=== PATIENT | female | born 1990 | race Caucasian/White ===

== ENCOUNTER 2016-07-12 21:42 | Emergency (ER) | payer BC ==
[2016-07-12 21:55] VITALS: BP 128/81
--- NOTE | 2016-07-12 22:02 | EDM.PDOC ---
ED HPI GENERAL MEDICAL PROBLEM - General Chief Complaint: Genitourinary Problem Stated Complaint: POSS PCOS Time Seen by Provider: 07/12/16 22:01 - History of Present Illness INITIAL COMMENTS - FREE TEXT/NARRATIVE: 25-year-old female presents emergency room with abdominal and pelvic pain. Patient is ongoing pelvic pain is thought to have polycystic ovarian syndrome. It is unclear whether this is her been confirmed. She has followup with Dr. Chen tomorrow. She's developed a new type of pain it's up a little higher and on the left side. Does not feel like typical ovarian pain. This pain is not associated with any nausea vomiting constipation or diarrhea he has not noticed any blood in her stools or mucus in her stools. Treatments MACHINE LACER: Reports: Other (see below) Other Treatments MACHINE LACER: Ibuprofen 400 mg at 1900 Pelvic Pain Score (Numeric/FACES): 7 - Related Data Allergies Allergy/AdvReac Type Severity Reaction Status Date / Time No Known Allergies Allergy Verified 07/12/16 21:51 Home Meds: Home Meds Acetaminophen [Tylenol] 325 mg PO Q6H #50 tablet 02/11/16 [Rx] Ibuprofen [Motrin] 600 mg PO Q6H #50 tablet 02/11/16 [Rx] Medroxyprogesterone Acet [IJD: Provera] 10 mg PO BID 02/11/16 [History] Ondansetron [Ondansetron ODT] 8 mg PO Q6H PRN 02/11/16 [History] Polyethylene Glycol 3350 [MiraLAX] 17 gm PO TID #21 packet 02/11/16 [Rx] Vit W-Ca,Fe,FA(<1 mg) [ Vitamins] 1 tab PO DAILY 02/11/16 [ History] Hydrocodone/Acetaminophen [Dutton 5-325 Tablet] 1 - 2 tab PO Q6H PRN #5 tablet [Rx] Past Medical History - Past Health History Medical/Surgical History: Denies Medical/Surgical History HEENT History: Reports: Other (see below) Other HEENT History: glass in eye one time, corneal abrasion Gastrointestinal History: Reports: Other (see below) Other Gastrointestinal History: states has Hx of "cyst" on gallbladder. Genitourinary History: Reports: UTI, recurrent SKI GUIDE History: Reports: Polycystic Ovaries Other OB/BYN History: 2 children and 2 misscarriages; births have been vaginal deliveries Psychiatric History: Reports: Anxiety Hematologic History: Reports: Anemia, Iron deficiency - Infectious Disease History Infectious Disease History: Reports: None - Past Surgical History HEENT Surgical History: Reports: Oral surgery, Other (see below) Other HEENT Surgeries/Procedures: wisdom teeth extraction Female Surgical History: Reports: D&C Social & Family History - Family History Family Medical History: Noncontributory Other Dermatologic Family History: arthritis - Tobacco Use Smoking Status *Q: Current Every Day Smoker Years of Tobacco use: 5 Packs/Tins Daily: 1 - Caffeine Use Caffeine Use: - Alcohol Use Days Per Week of Alcohol Use: 0 - Recreational Drug Use Recreational Drug Use: No Drug Use in Last 12 Months: No Recreational Drug Type: Reports: Marijuana/Hashish Other Recreational Drug Type: long time ago did some marijuana - Living Situation & Occupation Living situation: Reports: Occupation: unemployed ED ROS GENERAL - Review of Systems Review Of Systems: See Below Constitutional: Reports: no symptoms. Denies: fever, chills HEENT: Reports: No symptoms Respiratory: Reports: No Symptoms Cardiovascular: Reports: No symptoms GI/Abdominal: Reports: Abdominal pain. Denies: Constipation, Diarrhea, Nausea, Vomiting : Denies: discharge, dysuria, flank pain, frequency, hematuria Musculoskeletal: Reports: no symptoms ED EXAM, GI/ABD - Physical Exam Exam: See Below Exam Limited By: No limitations General Appearance: alert, no apparent distress Head: atraumatic, normocephalic Neck: normal inspection, supple, non-tender, full range of motion. No: lymphadenopathy (L), lymphadenopathy (R) Respiratory/Chest: no respiratory distress, lungs clear, normal breath sounds Cardiovascular: regular rate, rhythm, no edema, no murmur GI/Abdominal: Normal Bowel Sounds, Other (Patient significant left-sided pelvic and left lower quadrant abdominal discomfort. No appreciable rebound however she does have some guarding you can work through this) Back Exam: normal inspection. No: CVA tenderness (L), CVA tenderness (R) Extremities: normal inspection, no pedal edema Neurological: alert, oriented, normal cognition Course - Vital Signs Last Recorded V/S: Last Vital Signs Temp 36.7 C 07/12/16 21:51 Pulse 89 07/12/16 21:51 Resp BP 128/81 07/12/16 21:51 Pulse Ox 99 07/12/16 21:51 - Orders/Labs/Meds Orders: Active Orders 24 hr Category Date Time Status Lactated Ringers [Ringers, Lactated] 1,000 ml Med 07/12/16 22:15 Active IV ASDIRECTED Medication Orders Lactated Ringer's (Ringers, Lactated) 1,000 mls @ 150 mls/hr IV ASDIRECTED AMBERLY Last Admin: 07/12/16 22:41 Dose: 150 mls/hr Labs: Laboratory Tests 07/12/16 07/12/16 07/12/16 Range/Units 22:30 22:30 22:45 WBC 8.60 (3.98-10.04) K/mm3 RBC 4.57 (3.98-5.22) M/mm3 Hgb 14.1 (11.2-15.7) gm/L Hct 41.3 (34.1-44.9) % MCV 90.4 (79.4-94.8) fl MCH 30.9 (25.6-32.2) pg MCHC 34.1 (32.2-35.5) g/dl RDW Std Deviation 39.9 (36.4-46.3) fL Plt Count 356 (182-369) K/mm3 MPV 10.7 (9.4-12.3) fl Neutrophils % (Manual) 54 (40-60) % Band Neutrophils % 0 (0-10) % Lymphocytes % (Manual) 45 H (20-40) % Atypical Lymphs % 0 % Monocytes % (Manual) 1 L (2-10) % Eosinophils % (Manual) 0 L (0.7-5.8) % Basophils % (Manual) 0 L (0.1-1.2) Platelet Estimate Adequate RBC Morph Comment Normal Sodium 139 (136-145) mEq/L Potassium 3.6 (3.5-5.1) mEq/L Chloride 104 (98-107) mEq/L Carbon Dioxide 24 (21-32) mEq/L Anion Gap 14.6 (5-15) BUN 14 (7-18) mg/dL Creatinine 0.8 (0.55-1.02) mg/dL Est Cr Clr Drug Dosing 90.47 mL/min Estimated GFR (MDRD) > 60 (>60) mL/min BUN/Creatinine Ratio 17.5 (14-18) Glucose 93 (74-106) mg/dL Calcium 9.2 (8.5-10.1) mg/dL Total Bilirubin 0.9 (0.2-1.0) mg/dL AST 9 L (15-37) U/L ALT 17 (14-59) U/L Alkaline Phosphatase 60 (46-116) U/L Total Protein 8.1 (6.4-8.2) g/dl Albumin 4.7 (3.4-5.0) g/dl Globulin 3.4 gm/dL Albumin/Globulin Ratio 1.4 (1-2) Urine Color (Yellow) Urine Appearance (Clear) Urine pH (5.0-8.0) Ur Specific [place] (1.005-1.030) Urine Protein (Negative) Urine Glucose (UA) (Negative) Urine Ketones (Negative) Urine Occult Blood (Negative) Urine Nitrite (Negative) Urine Bilirubin (Negative) Urine Urobilinogen (0.2-1.0) Ur Leukocyte Esterase (Negative) Urine RBC (0-5) /hpf Urine WBC (0-5) /hpf Urine WBC Clumps (NOT SEEN) /hpf Ur Epithelial Cells (0-5) /hpf Ur Squamous Epith Cells (0-5) /hpf Urine Bacteria (FEW) /hpf Urine Mucus (FEW) /hpf Urine HCG, Qual Negative (NEGATIVE) 07/12/16 Range/Units 22:45 WBC (3.98-10.04) K/mm3 RBC (3.98-5.22) M/mm3 Hgb (11.2-15.7) gm/L Hct (34.1-44.9) % MCV (79.4-94.8) fl MCH (25.6-32.2) pg MCHC (32.2-35.5) g/dl RDW Std Deviation (36.4-46.3) fL Plt Count (182-369) K/mm3 MPV (9.4-12.3) fl Neutrophils % (Manual) (40-60) % Band Neutrophils % (0-10) % Lymphocytes % (Manual) (20-40) % Atypical Lymphs % % Monocytes % (Manual) (2-10) % Eosinophils % (Manual) (0.7-5.8) % Basophils % (Manual) (0.1-1.2) Platelet Estimate RBC Morph Comment Sodium (136-145) mEq/L Potassium (3.5-5.1) mEq/L Chloride (98-107) mEq/L Carbon Dioxide (21-32) mEq/L Anion Gap (5-15) BUN (7-18) mg/dL Creatinine (0.55-1.02) mg/dL Est Cr Clr Drug Dosing mL/min Estimated GFR (MDRD) (>60) mL/min BUN/Creatinine Ratio (14-18) Glucose (74-106) mg/dL Calcium (8.5-10.1) mg/dL Total Bilirubin (0.2-1.0) mg/dL AST (15-37) U/L ALT (14-59) U/L Alkaline Phosphatase (46-116) U/L Total Protein (6.4-8.2) g/dl Albumin (3.4-5.0) g/dl Globulin gm/dL Albumin/Globulin Ratio (1-2) Urine Color Yellow (Yellow) Urine Appearance Clear (Clear) Urine pH 5.5 (5.0-8.0) Ur Specific [place] > or = 1.030 (1.005-1.030) Urine Protein Trace H (Negative) Urine Glucose (UA) Negative (Negative) Urine Ketones Trace H (Negative) Urine Occult Blood Negative (Negative) Urine Nitrite Negative (Negative) Urine Bilirubin 1+ H (Negative) Urine Urobilinogen 0.2 (0.2-1.0) Ur Leukocyte Esterase Negative (Negative) Urine RBC Not seen (0-5) /hpf Urine WBC 0-5 (0-5) /hpf Urine WBC Clumps Not seen (NOT SEEN) /hpf Ur Epithelial Cells 5-10 H (0-5) /hpf Ur Squamous Epith Cells 5-10 H (0-5) /hpf Urine Bacteria Not seen (FEW) /hpf Urine Mucus Many H (FEW) /hpf Urine HCG, Qual (NEGATIVE) Meds: Medications Generic Name Dose Route Start Last Admin Trade Name Freq PRN Reason Stop Dose Admin Lactated Ringer's 1,000 mls @ 150 mls/hr 07/12/16 22:15 07/12/16 22:41 Ringers, Lactated IV 150 mls/hr ASDIRECTED AMBERLY Administration Discontinued Medications Generic Name Dose Route Start Last Admin Trade Name Freq PRN Reason Stop Dose Admin Hydrocodone Bitart/Acetaminophen 1 tab 07/13/16 00:40 07/13/16 00:47 Dutton 325-5 Mg PO 07/13/16 00:41 1 tab ONETIME ONE Administration Fentanyl 50 mcg 07/12/16 22:13 07/12/16 22:42 Sublimaze IVPUSH 07/12/16 22:14 50 mcg ONETIME ONE Administration Ondansetron HCl 4 mg 07/12/16 22:13 07/12/16 22:45 Zofran IVPUSH 07/12/16 22:14 4 mg ONETIME ONE Administration - Re-Assessments/Exams Free Text/Narrative Re-Assessment/Exam: 07/13/16 00:49 For evaluation is unrevealing hCG is negative. Patient's followup with Dr. Chen in the morning. The patient will be discharged with a to go pack of the Dutton one or 2 every 6 hours as needed. Departure - Departure Time of Disposition: 00:51 Disposition: Home, Self-Care 01 Clinical Impression: Abdominal pain of unknown cause, Pelvic pain - Discharge Information Prescriptions: Hydrocodone/Acetaminophen [Dutton 5-325 Tablet] 1 - 2 tab PO Q6H PRN #5 tablet PRN Reason: Abdominal Pain Referrals: Obdulio Chen MD [Primary Care Provider] - Forms: ED Department Discharge Additional Instructions: Return to the emergency room with any questions or problems. Followup with Dr. Chen in the morning as scheduled. This evening emergency room his laboratory work is really unrevealing, however, this pain is a little different than what she had in the past and could represent a new problem. At this point I would recommend clear liquid diet for the next 12 hours then slowly advance as tolerated. Return to the emergency room in 12-24 hours if not better sooner if getting worse. - My Orders Last 24 Hours: My Active Orders 07/12/16 22:15 Lactated Ringers [Ringers, Lactated] 1,000 ml IV ASDIRECTED - Assessment/Plan Last 24 Hours: My Active Orders 07/12/16 22:15 Lactated Ringers [Ringers, Lactated] 1,000 ml IV ASDIRECTED
[2016-07-12] MEDS ORDERED: Ondansetron 4 MG/2 ML SDV IVPUSH ONE (22:13)
[2016-07-12] MEDS ORDERED: fentaNYL 100 MCG/2 ML SDV IVPUSH ONE (22:13)
[2016-07-12] MEDS ORDERED: Lactated Ringers 1,000 ML IV SCH (22:15)
[2016-07-13] MEDS ORDERED: Acetaminophen/HYDROcodone 325-5 MG Tab PO ONE (00:40)
== END 2016-07-13 01:05 | disposition home or self-care (01) ==
LOC: JD.ED 21:42
DX: R10.32 Left lower quadrant pain (principal); R10.2 Pelvic and perineal pain; F41.9 Anxiety disorder, unspecified; F17.210 Nicotine dependence, cigarettes, uncomplicated; Z87.440 Personal history of urinary (tract) infections; Z86.2 Personal history of diseases of the blood and blood-forming organs and certain disorders involving the immune mechanism; Z98.890 Other specified postprocedural states; Z79.899 Other long term (current) drug therapy
CPT/HCPCS: 36415; 80053; 81001; 81025; 85025; 96361; 96374; 96375; 99284; A9270; J2405; J3010; J7120

== ENCOUNTER 2016-08-15 21:11 | Emergency (ER) | payer BC ==
[2016-08-15 21:50] VITALS: BP 122/88
--- NOTE | 2016-08-15 22:41 | EDM.PDOC ---
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 Last normal menstrual period was greater than 2 months ago. She states her cycles are usually very regular. She not been using any form of control. Is 6 para 2. 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 She states she feels with breast tenderness. Spotting per vagina as was 4 days ago and lasted for less than 6 hours. Since that time she is expressing a lot of lower abdominal cramping pain menstrual-like pain. No bleeding. She has not tried a home test. Of note the patient has taken Motrin 800 mg at home for pain relief. She reports her bowels been working more than normal. No problems with constipation. Onset: Gradual (Spotting started 4 days ago. 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 SUPERVISOR: Reports: Other (see below) (None.) Lower Abdomen Pain Score (Numeric/FACES): 5 - Related Data Allergies Allergy/AdvReac Type Severity Reaction Status Date / Time No Known Allergies Allergy Verified 08/15/16 21:46 Home Meds: Home Meds Ibuprofen 800 mg PO ASDIRECTED PRN 08/15/16 [History] Diclofenac Sodium [Voltaren-XR] 100 mg PO DAILY #3 tab.sr.24h 08/16/16 [Rx] Past Medical History - Past Health History Medical/Surgical History: Denies Medical/Surgical History HEENT History: Reports: Other (See Below) Other HEENT History: glass in eye one time, corneal abrasion Gastrointestinal History: Reports: Other (See Below) Other Gastrointestinal History: exploratory laproscopy Genitourinary History: Reports: UTI, Recurrent Other Genitourinary History: PCOS 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 PRESS TENDER History: Reports: Polycystic Ovaries : 6 Para: 2 (2 miscarriages requiring D&Cs.) Other OB/BYN History: 2 children and 2 misscarriages; births have been vaginal deliveries Psychiatric History: Reports: Anxiety Hematologic History: Reports: Anemia, Iron Deficiency - Infectious Disease History Infectious Disease History: Reports: None - Past Surgical History HEENT Surgical History: Reports: Oral Surgery, Other (See Below) Female Surgical History: Reports: D&C Social & Family History - Family History Family Medical History: Noncontributory Other Dermatologic Family History: arthritis - Tobacco Use Smoking Status *Q: Current Every Day Smoker Years of Tobacco use: 6 Packs/Tins Daily: 0.7 - Caffeine Use Caffeine Use: - Alcohol Use Days Per Week of Alcohol Use: 0 - Recreational Drug Use Recreational Drug Use: No Drug Use in Last 12 Months: No Recreational Drug Type: Reports: Marijuana/Hashish Other Recreational Drug Type: long time ago did some marijuana - Living Situation & Occupation Living situation: Reports: Occupation: Unemployed ED ROS GENERAL - Review of Systems Review Of Systems: See Below Constitutional: Reports: Malaise, Fatigue. Denies: Fever, Chills HEENT: Reports: No Symptoms Respiratory: Reports: No Symptoms Cardiovascular: Reports: No Symptoms Endocrine: Reports: No Symptoms GI/Abdominal: Reports: Abdominal Pain (See history of present illness) : Reports: Irregular Menses Musculoskeletal: Reports: No Symptoms (She believes her last menstrual period was approximately 2-1/2 months ago.) Skin: Reports: No Symptoms Neurological: Reports: No Symptoms Psychiatric: Reports: No Symptoms Hematologic/Lymphatic: Reports: No Symptoms Immunologic: Reports: No Symptoms ED EXAM - Physical Exam Exam: See Below Exam Limited By: No Limitations General Appearance: Alert, WD/WN, No Apparent Distress Respiratory/Chest: No Respiratory Distress, Lungs Clear, Normal Breath Sounds, No Accessory Muscle Use Cardiovascular: Normal Peripheral Pulses, Regular Rate, Rhythm, No Edema, No Gallop, No Murmur, No Rub GI/Abdominal: Normal Bowel Sounds, Soft, Non-Tender, No Organomegaly, No Distention, No Abnormal Bruit. No: Gravid Uterus Course - Vital Signs Last Recorded V/S: Last Vital Signs Temp 37.0 C 08/15/16 21:48 Pulse 83 08/15/16 21:48 Resp 18 08/15/16 21:48 BP 122/88 08/15/16 21:48 Pulse Ox 100 08/15/16 21:48 - Orders/Labs/Meds Orders: Active Orders 24 hr Category Date Time Status Ketorolac [Toradol] Med 08/16/16 00:15 Active 30 mg IVPUSH ONETIME Sodium Chloride 0.9% [Normal Saline] 1,000 ml Med 08/15/16 22:45 Active IV ASDIRECTED Medication Orders Sodium Chloride (Normal Saline) 1,000 mls @ 150 mls/hr IV ASDIRECTED AMBERLY Last Admin: 08/15/16 23:12 Dose: 150 mls/hr Ketorolac Tromethamine (Toradol) 30 mg IVPUSH ONETIME AMBERLY Last Admin: 08/16/16 00:20 Dose: 30 mg Labs: Laboratory Tests 08/15/16 08/15/16 08/15/16 Range/Units 22:55 23:00 23:00 WBC 7.05 (3.98-10.04) K/mm3 RBC 4.41 (3.98-5.22) M/mm3 Hgb 13.7 (11.2-15.7) gm/L Hct 40.9 (34.1-44.9) % MCV 92.7 (79.4-94.8) fl MCH 31.1 (25.6-32.2) pg MCHC 33.5 (32.2-35.5) g/dl RDW Std Deviation 42.2 (36.4-46.3) fL Plt Count 268 (182-369) K/mm3 MPV 10.8 (9.4-12.3) fl Neutrophils % (Manual) 51 (40-60) % Band Neutrophils % 0 (0-10) % Lymphocytes % (Manual) 42 H (20-40) % Atypical Lymphs % 2 % Monocytes % (Manual) 4 (2-10) % Eosinophils % (Manual) 1 (0.7-5.8) % Basophils % (Manual) 0 L (0.1-1.2) Platelet Estimate Adequate Plt Morphology Comment Normal RBC Morph Comment Normal Sodium 143 (136-145) mEq/L Potassium 4.1 (3.5-5.1) mEq/L Chloride 107 (98-107) mEq/L Carbon Dioxide 28 (21-32) mEq/L Anion Gap 12.1 (5-15) BUN 11 (7-18) mg/dL Creatinine 0.8 (0.55-1.02) mg/dL Est Cr Clr Drug Dosing 90.47 mL/min Estimated GFR (MDRD) > 60 (>60) mL/min BUN/Creatinine Ratio 13.8 L (14-18) Glucose 93 (74-106) mg/dL Calcium 9.2 (8.5-10.1) mg/dL Total Bilirubin 0.3 (0.2-1.0) mg/dL AST 12 L (15-37) U/L ALT 28 (14-59) U/L Alkaline Phosphatase 67 (46-116) U/L Total Protein 7.3 (6.4-8.2) g/dl Albumin 4.1 (3.4-5.0) g/dl Globulin 3.2 gm/dL Albumin/Globulin Ratio 1.3 (1-2) HCG, Qual (NEGATIVE) Urine Color Yellow (Yellow) Urine Appearance Cloudy H (Clear) Urine pH 7.0 (5.0-8.0) Ur Specific [place] 1.025 (1.005-1.030) Urine Protein Negative (Negative) Urine Glucose (UA) Negative (Negative) Urine Ketones Negative (Negative) Urine Occult Blood Negative (Negative) Urine Nitrite Negative (Negative) Urine Bilirubin Negative (Negative) Urine Urobilinogen 0.2 (0.2-1.0) Ur Leukocyte Esterase Negative (Negative) Urine RBC 0-5 (0-5) /hpf Urine WBC 0-5 (0-5) /hpf Ur Epithelial Cells 5-10 H (0-5) /hpf Amorphous Sediment Many H (NOT SEEN) /hpf Urine Bacteria Few (FEW) /hpf Urine Mucus Not seen (FEW) /hpf Blood Type 08/15/16 08/15/16 Range/Units 23:00 23:00 WBC (3.98-10.04) K/mm3 RBC (3.98-5.22) M/mm3 Hgb (11.2-15.7) gm/L Hct (34.1-44.9) % MCV (79.4-94.8) fl MCH (25.6-32.2) pg MCHC (32.2-35.5) g/dl RDW Std Deviation (36.4-46.3) fL Plt Count (182-369) K/mm3 MPV (9.4-12.3) fl Neutrophils % (Manual) (40-60) % Band Neutrophils % (0-10) % Lymphocytes % (Manual) (20-40) % Atypical Lymphs % % Monocytes % (Manual) (2-10) % Eosinophils % (Manual) (0.7-5.8) % Basophils % (Manual) (0.1-1.2) Platelet Estimate Plt Morphology Comment RBC Morph Comment Sodium (136-145) mEq/L Potassium (3.5-5.1) mEq/L Chloride (98-107) mEq/L Carbon Dioxide (21-32) mEq/L Anion Gap (5-15) BUN (7-18) mg/dL Creatinine (0.55-1.02) mg/dL Est Cr Clr Drug Dosing mL/min Estimated GFR (MDRD) (>60) mL/min BUN/Creatinine Ratio (14-18) Glucose (74-106) mg/dL Calcium (8.5-10.1) mg/dL Total Bilirubin (0.2-1.0) mg/dL AST (15-37) U/L ALT (14-59) U/L Alkaline Phosphatase (46-116) U/L Total Protein (6.4-8.2) g/dl Albumin (3.4-5.0) g/dl Globulin gm/dL Albumin/Globulin Ratio (1-2) HCG, Qual Negative (NEGATIVE) Urine Color (Yellow) Urine Appearance (Clear) Urine pH (5.0-8.0) Ur Specific [place] (1.005-1.030) Urine Protein (Negative) Urine Glucose (UA) (Negative) Urine Ketones (Negative) Urine Occult Blood (Negative) Urine Nitrite (Negative) Urine Bilirubin (Negative) Urine Urobilinogen (0.2-1.0) Ur Leukocyte Esterase (Negative) Urine RBC (0-5) /hpf Urine WBC (0-5) /hpf Ur Epithelial Cells (0-5) /hpf Amorphous Sediment (NOT SEEN) /hpf Urine Bacteria (FEW) /hpf Urine Mucus (FEW) /hpf Blood Type O NEGATIVE Meds: Medications Generic Name Dose Route Start Last Admin Trade Name Candido PRN Reason Stop Dose Admin Sodium Chloride 1,000 mls @ 150 mls/hr 08/15/16 22:45 08/15/16 23:12 Normal Saline IV 150 mls/hr ASDIRECTED AMBERLY Administration Ketorolac Tromethamine 30 mg 08/16/16 00:15 08/16/16 00:20 Toradol IVPUSH 30 mg ONETIME AMBERLY Administration Discontinued Medications Generic Name Dose Route Start Last Admin Trade Name Candido PRN Reason Stop Dose Admin Hydromorphone HCl 0.25 mg 08/15/16 22:45 08/15/16 23:14 Dilaudid IVPUSH 08/15/16 22:46 0.25 mg ONETIME ONE Administration Hydromorphone HCl 0.5 mg 08/16/16 00:03 08/16/16 00:17 Dilaudid IVPUSH 08/16/16 00:04 0.5 mg ONETIME ONE Administration Ondansetron HCl 4 mg 08/15/16 22:46 08/15/16 23:13 Zofran IVPUSH 08/15/16 22:47 4 mg ONETIME ONE Administration - Radiology Interpretation Free Text/Narrative:: 25-year-old female presents to the ED with suspect . She states she spotted per vagina but 4 days ago but it lasted only about 6 hours. Over the last 24 she developed increasing lower abdominal pelvic cramps i.e. menstrual cramps. No bleeding per vagina. She reports that her bowels seem to be functioning more than normal as well. She has no problems with constipation. Patient feels with breast tenderness. No nausea or vomiting. Last normal menstrual period she believes was greater than 2 months ago. Cycles are usually very regular. She is not using any form of control present. On physical examination bowel sounds are active in all 4 quadrants benign abdominal examination and uterine fundus is not palpable. Pelvic examination reveals a normal-size uterus anteverted and adnexal tenderness on palpation but ovaries are both within normal limits. No masses identified negative chandelier sign and no blood on gloved finger. Cervix is closed plan routine labs to include a beta hCG. I do not anticipate that she is . Given Dilaudid 0.25 mg IV for pain relief as she mentioned she is very sensitive to narcotics. Given Zofran 4 mg IV for nausea as well. - Re-Assessments/Exams Free Text/Narrative Re-Assessment/Exam: 08/16/16 00:10 Labs returned and reveal a normal white count at 7.05 with 51% it feels and no bands and globus 13.7 hematocrit of 40.9 platelets are normal. HCG was negative. Therefore I suspect she is going to get her period within the next 48 hours. She was relieved to find out that she was not . She is asking for more analgesia and therefore I will give her Dilaudid 0.5 mg IV and Toradol 30 mg IV. Discharged home on Voltaren XL 100 mg once daily for the next 3 days to relieve dysmenorrhea. Follow-up as needed Departure - Departure Time of Disposition: 00:09 Disposition: Home, Self-Care 01 Condition: Fair Clinical Impression: Dysfunctional uterine bleeding, Amenorrhea - Discharge Information Prescriptions: Diclofenac Sodium [Voltaren-XR] 100 mg PO DAILY #3 tab.sr.24h Instructions: Dysfunctional Uterine Bleeding Referrals: PCP,None [Primary Care Provider] - Forms: ED Department Discharge Additional Instructions: Evaluation in the emergency room tonight due to lower abdominal cramping pain with a history of spotting per vagina 4 days ago. No periods for at least 2 months suggesting possibility of . Lab tests however did not identify any signs of . Also pelvic examination suggested the uterus was normal in size and not . Your treated in the ED with intravenous Dilantin at 0.25 mg initially and then 0.5 mg after this and then Toradol 30 mg IV to relieve abdominal cramping pain. Suspect her. Is likely dystrophic in the next 48 hours. I did write a prescription for diclofenac extended release 100 mg once daily for the next 3 days to relieve cramping and if needed - My Orders Last 24 Hours: My Active Orders 08/15/16 22:45 Sodium Chloride 0.9% [Normal Saline] 1,000 ml IV ASDIRECTED 08/16/16 00:15 Ketorolac [Toradol] 30 mg IVPUSH ONETIME - Assessment/Plan Last 24 Hours: My Active Orders 08/15/16 22:45 Sodium Chloride 0.9% [Normal Saline] 1,000 ml IV ASDIRECTED 08/16/16 00:15 Ketorolac [Toradol] 30 mg IVPUSH ONETIME
[2016-08-15] MEDS ORDERED: HYDROmorphone 0.5 MG/0.5 ML Syringe IVPUSH ONE (22:45)
[2016-08-15] MEDS ORDERED: Sodium Chloride 0.9% 1,000 ML IV SCH (22:45)
[2016-08-15] MEDS ORDERED: Ondansetron 4 MG/2 ML SDV IVPUSH ONE (22:46)
[2016-08-16] MEDS ORDERED: HYDROmorphone 0.5 MG/0.5 ML Syringe IVPUSH ONE (00:03)
[2016-08-16] MEDS ORDERED: Ketorolac 30 MG/ML SDV IVPUSH SCH (00:15)
== END 2016-08-16 00:39 | disposition home or self-care (01) ==
LOC: JD.ED 21:11
DX: N91.2 Amenorrhea, unspecified (principal); N93.8 Other specified abnormal uterine and vaginal bleeding; F41.9 Anxiety disorder, unspecified; F17.210 Nicotine dependence, cigarettes, uncomplicated; Z98.890 Other specified postprocedural states; Z86.2 Personal history of diseases of the blood and blood-forming organs and certain disorders involving the immune mechanism; Z79.899 Other long term (current) drug therapy
CPT/HCPCS: 36415; 80053; 81001; 84703; 85025; 86900; 86901; 96361; 96374; 96375; 99284; J1170; J1885; J2405; J7040

== ENCOUNTER 2016-10-01 16:10 | Emergency (ER) | payer BC ==
[2016-10-01] MEDS ORDERED: Diphtheria,Pertussis(Acell),Tetanus Vaccine 0.5 ML SDV IM ONE (16:18)
[2016-10-01] MEDS ORDERED: Lidocaine 1% 10 ML MDV INJECT ONE (16:18)
[2016-10-01 16:24] VITALS: BP 134/87
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
[2016-10-01] MEDS ORDERED: LORazepam 2 MG/ML MDV IM ONE (16:32)
[2016-10-01] MEDS ORDERED: Lidocaine/EPINEPHrine/Tetracaine Soln 1 ML TOP STA ×2 (17:12→17:13)
--- NOTE | 2016-10-02 08:14 | CR ---
Thoracic spine: AP, lateral and swimmer's view were obtained of the thoracic spine. Slight scoliosis is seen. Vertebral body heights and disc spaces are maintained. Slightly abnormal curvature is seen on the lateral view most likely developmental. No acute fracture or other bony abnormality is appreciated. Impression: 1. Slight scoliosis and slightly abnormal curve seen on the lateral view. This is likely developmental. 2. Nothing acute is appreciated on three-view lumbar spine study. Diagnostic code #2
--- NOTE | 2016-10-02 08:14 | CR ---
Right wrist: Four views of the right wrist were obtained. Comparison: No previous study. Soft tissue injury is identified along the ulnar side of the distal forearm. Joint spaces are maintained. No acute fracture or other bony abnormality is identified. Impression: 1. Soft tissue injury. 2. No additional abnormality is identified on right wrist exam. Diagnostic code #3
--- NOTE | 2016-10-02 08:14 | CT ---
Head CT Technique: Multiple axial sections through the brain were obtained. Intravenous contrast was not utilized. Comparison: No previous intracranial imaging. Findings: Ventricles along with basal cisterns and sulci over the convexities are within normal limits for the patient's age. No abnormal parenchymal densities are seen. No evidence of intracranial hemorrhage. No midline shift or mass effect is seen. Minimal mucosal thickening seen within the ethmoid sinuses. No acute calvarial abnormality is seen. Impression: 1. Minimal sinus findings which are incidental. 2. No acute intracranial abnormality is identified. Diagnostic code #2 I agree with preliminary report issued by [facility] ([facility] preliminary report dictated on 10/01/16, 6:21 PM Central Time)
--- NOTE | 2016-10-02 08:47 | CT ---
CT cervical spine Technique: Multiple axial sections were obtained from above C1 inferiorly to the bottom of T1. Reconstructed sagittal and coronal images were reviewed. Findings: Visualized mastoid sinuses are clear. Middle air cavities are clear. Posterior skull base is intact. Vertebral body heights and disc spaces are maintained. Vertebral bodies and posterior arches are intact. No fracture. No bony central or bony neural foraminal stenosis is seen. No abnormal subluxation is seen on the reconstructed sagittal images. Impression: 1. No abnormality is identified on CT study of the cervical spine. Diagnostic code #1 I agree with preliminary report issued by [facility] ([facility] preliminary report dictated on 10/01/16, 6:20 PM Central Time)
== END 2016-10-01 19:30 | disposition home or self-care (01) ==
LOC: JD.ED 16:10
DX: S01.511A Laceration without foreign body of lip, initial encounter (principal); S61.511A Laceration without foreign body of right wrist, initial encounter; F17.210 Nicotine dependence, cigarettes, uncomplicated; S63.501A Unspecified sprain of right wrist, initial encounter; M54.2 Cervicalgia; M54.6 Pain in thoracic spine; Z87.440 Personal history of urinary (tract) infections; Z86.2 Personal history of diseases of the blood and blood-forming organs and certain disorders involving the immune mechanism; X99.1XXA Assault by knife, initial encounter
CPT/HCPCS: 12001; 13152; 70450; 72072; 72125; 73110; 99285; A9270; 12052; 99284-25

== ENCOUNTER 2016-10-25 16:21 | Emergency (ER) | payer BC ==
[2016-10-25 16:52] VITALS: BP 128/89
[2016-10-25] MEDS ORDERED: Sodium Chloride 0.9% 10 ML Syringe FLUSH PRN (17:02)
[2016-10-25] MEDS ORDERED: Sodium Chloride 0.9% 1,000 ML IV SCH (17:15)
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
[2016-10-25] MEDS ORDERED: Metoclopramide 10 MG/2 ML SDV IVPUSH ONE (17:26)
[2016-10-25] MEDS ORDERED: fentaNYL 100 MCG/2 ML SDV IVPUSH ONE ×2 (17:26→17:45)
[2016-10-25] MEDS ORDERED: LORazepam 2 MG/ML MDV IVPUSH ONE (17:45)
[2016-10-25] MEDS ORDERED: Magnesium Citrate Solution 296 ML Bottle PO ONE (18:30)
--- NOTE | 2016-10-25 19:14 | US ---
First trimester obstetrical ultrasound: Multiple real-time images were obtained transvaginally. Comparison: No previous ultrasound exam. No intrauterine gestational sac is seen. Endometrial thickness is 7 mm. No adnexal abnormalities are seen. Right ovary not visualized, right adnexa appears within normal limits. Left ovary is seen and shows follicles. No free fluid is seen. Impression: 1. No intrauterine gestational sac, no adnexal abnormalities are seen. 2. Nonvisualized right ovary with normal-appearing left ovary. 3. No free fluid is identified. Note: No evidence of ectopic is seen by this exam. Diagnostic code #1
== END 2016-10-25 18:45 | disposition home or self-care (01) ==
LOC: JD.ED 16:21
DX: R10.30 Lower abdominal pain, unspecified (principal); F15.10 Other stimulant abuse, uncomplicated; Z87.440 Personal history of urinary (tract) infections; Z86.2 Personal history of diseases of the blood and blood-forming organs and certain disorders involving the immune mechanism; F17.210 Nicotine dependence, cigarettes, uncomplicated
CPT/HCPCS: 36415; 76817; 80053; 80306; 81001; 84702; 84703; 85025; 86140; 86900; 86901; 96361; 96374; 96375; 99284; J2765; J3010; J7040; J7050

== ENCOUNTER 2017-09-02 15:17 | Inpatient (IN) | payer BC, MEDICAID ==
[2017-09-02] MEDS ORDERED: Sodium Chloride 0.9% 10 ML Syringe FLUSH PRN (15:57)
[2017-09-02] MEDS ORDERED: Lidocaine 1% 50 ML MDV INJECT ONE (15:57)
[2017-09-02] MEDS ORDERED: Oxytocin/Lactated Ringers 10 UNIT/1,000 ML BAG IV SCH ×2 (16:00→20:41)
[2017-09-02] MEDS: Lactated Ringers 1,000 ML IV SCH ×2 (16:00→17:17)
--- NOTE | 2017-09-02 17:08 | PCM.LDHP ---
L&D History of Present Illness - General Date of Service: 09/02/17 Admit Problem/Dx: Patient Status Order with Admit Dx/Problem 09/02/17 15:57 Patient Status [ADT] Routine Admission Diagnosis/Problem Admission Diagnosis/Problem Source of Information: Patient History Limitations: Reports: No Limitations - History of Present Illness Introduction:: Cherry Stafford is a 26 year old at 37 weeks 0 days by 7 week ultrasound who presents with active labor. She reports that she began having contractions last evening at approximately midnight that have progressively gotten closer together and more painful. She reports that the contractions at this time are approximately 3-4 minutes apart. She rates the pain at 8/10 on a pain scale. She denies any leaking of fluid but has had continuous vaginal bleeding since contractions started last night. She reports that she did have a gush of fluid last evening but this occurred after sexual intercourse. She has not had any continuous leaking of fluid throughout the day today. She reports that she has had good movement up until last night but has had some decreased movement since the contractions started. Timing/Duration: Reports: hour(s): (since midnight), getting worse Location, : Reports: Abdomen, Lower back, Pelvic Quality: Reports: Pressure, Throbbing Severity: Severe Pain Score: 8 Improves with: Reports: None Worsens with: Reports: None Associated Symptoms: Reports: vaginal bleeding, moderate amount. Denies: vaginal clots, vaginal fluid Present Illness Comments:: Cherry Stafford is a 26-year-old 1-2 at 37 weeks 0 days by 7 week ultrasound who presents in active labor. She has been seen by Dr. Miner throughout the right and see but has had somewhat irregular care with only 6 total visits. Review of labs shows blood type of O- with negative antibody screen. Rubella equivocal. Syphilis IgG nonreactive, hepatitis B surface antigen nonreactive, HIV nonreactive and hepatitis C nonreactive. Her Pap smear was negative for intraepithelial epithelial lesion or malignancy. Gonorrhea test was negative but she was positive for chlamydia on 06/05/2017 and was treated. She had a negative test of cure for chlamydia in July. Her 1 hour glucose tolerance test was 100. Urine culture was positive for Escherichia coli urinary tract infection and she was treated with Macrobid. She had a normal anatomy scan with an anterior placenta. She has not had a GBS swab done during this as she missed her last appointment when it was scheduled to be done. She denies a history of GBS sepsis in either of her other children when they were born. Her has been complicated by history of methamphetamine abuse with last use approximately 2.5 months ago. She reports she uses methamphetamine through IV and smoking. She does report that she went through a rehabilitation program and graduated approximately 2 months ago and has had multiple negative drug screens since finishing that program. She does report she has had a history of marijuana use with last use approximately one month ago. She also has a current every day smoker with a half pack per day for 3-5 years and is not interested in assistance with quitting. She is Rh- and received RhoGAM at 27 weeks gestational age. She did receive TDaP vaccine at 27 weeks gestational age. She has a history of anxiety and panic disorder but has not required any medication. Denies history of depression. Her first was complicated by delivery at 35 weeks gestational age but she was not on any progesterone supplementation during this . She does not have custody of her children at this time as they are living with their father. 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 : 5 Para: 2 (1122) Other OB/BYN History: 2 children and 2 misscarriages; births have been vaginal deliveries Psychiatric History: Reports: Anxiety Hematologic History: Reports: Anemia, Iron Deficiency - Infectious Disease History Infectious Disease History: Reports: None - Past Surgical History HEENT Surgical History: Reports: Oral Surgery Female Surgical History: Reports: D&C Other Female Surgeries/Procedures: Diagnostic laparoscopy for pelvic pain Social & Family History - Family History Family Medical History: Noncontributory Other Dermatologic Family History: arthritis - Tobacco Use Smoking Status *Q: Current Every Day Smoker (0.5 pack per day) Tobacco Use Within Last Twelve Months: Cigarettes Packs/Tins Daily Comment: 0.5 packs per day Used Tobacco, but Quit: No Smoking Cessation Information Provided To Patient: Patient Refused - Tobacco Core Measures Tobacco Use/Smoking Within Last 30 Days: Yes Smoking Frequency Within Last 30 Days: Reports: Five or More Cigarettes Per Day Smokeless Tobacco Use in Last 30 Days: No Alternative Nicotine Product Use: Denies: e-Cigarettes`, Hookah Desires Tobacco Cessation Medication: Refuses FDA Approved Med - Caffeine Use Caffeine Use: Reports: None - Alcohol Use Alcohol Use History: No - Recreational Drug Use Recreational Drug Use: No Drug Use in Last 12 Months: Yes Recreational Drug Type: Reports: Marijuana/Hashish (Reports last use approximately one month ago.), Methamphetamine (Reports last used approximately 2.5 months ago. Reports she completed drug rehabilitation approximately 2 months ago.) Recreational Drug Route: Reports: Inhaled, Intravenous - Sexual History Sexual History: Reports: Sexually Active - Living Situation & Occupation Living situation: Reports: Occupation: Unemployed H&P Review of Systems - Review of Systems: Review Of Systems: See Below General: Denies: Fever, Chills, Malaise, Fatigue HEENT: Reports: Sinus Congestion. Denies: Post Nasal Drip, Sore Throat, Visual Changes Pulmonary: Denies: Shortness of Breath, Wheezing, Cough Cardiovascular: Denies: Chest Pain, Palpitations Gastrointestinal: Reports: Diarrhea (For approximately 1 week, no close family members with diarrhea.). Denies: Abdominal Pain, Constipation, Nausea, Vomiting Genitourinary: Denies: Dysuria, Frequency, Burning, Pain, Urgency Musculoskeletal: Reports: Back Pain, Leg Pain (Sciatica bilaterally) Skin: Denies: Rash, Lesions Psychiatric: Reports: Anxiety (Uses nonmedication coping mechanisms). Denies: Depression Neurological: Denies: Headache L&D Exam - Exam Exam: See Below - Vital Signs Weight: 74.389 kg - OB Specific Contraction Duration (sec): 60 Contraction Frequency (min): 3-6 Contraction Intensity: Moderate to Strong Movement: Active Heart Tones: Present Heart Tones per Min: 140 (positive 15 x 15 accelerations, intermittent variable decelerations and occasional early decelerations) Heart Rate (FHR) Variability: Moderate (6-25 bmp) Presentation: Vertex Estimated Weight: 6-6.5 by Leopolds - Box Score Box Score Cervix Position: Anterior Box Score Consistency: Soft Box Score Effacement: >80% Box Score Dilation: > 5 cm Box Score Infant's Station: -2 Box Score Total: 11 - Exam General: Alert, Oriented HEENT: Conjunctiva Clear, EOMI Neck: Supple, Trachea Midline Lungs: Clear to Auscultation, Normal Respiratory Effort Cardiovascular: Regular Rate, Regular Rhythm GI/Abdominal Exam: Soft, Non-Tender, No Distention, Other (Gravid). No: Guarding, Rigid, Rebound Genitourinary: Normal external exam Back Exam: Normal Inspection, Full Range of Motion Extremities: Normal Inspection, No Pedal Edema Skin: Warm, Dry, Intact Psychiatric: Alert, Normal Affect, Normal Mood - Patient Data Lab Results Last 24 hrs: Laboratory Results - last 24 hr 09/02/17 Range/Units 16:10 WBC 14.63 H (3.98-10.04) K/mm3 RBC 3.57 L (3.98-5.22) M/mm3 Hgb 11.0 L (11.2-15.7) gm/L Hct 33.0 L (34.1-44.9) % MCV 92.4 (79.4-94.8) fl MCH 30.8 (25.6-32.2) pg MCHC 33.3 (32.2-35.5) g/dl RDW Std Deviation 43.2 (36.4-46.3) fL Plt Count 263 (182-369) K/mm3 MPV 10.4 (9.4-12.3) fl Result Diagrams: 09/02/17 16:10 - Problem List (1) 37 weeks gestation of SNOMED Code(s): 93042565 ICD Code: Z3A.37 - 37 WEEKS GESTATION OF Status: Acute Current Visit: Yes (2) History of methamphetamine abuse SNOMED Code(s): 534904778 ICD Code: Z87.898 - PERSONAL HISTORY OF OTHER SPECIFIED CONDITIONS Status: Acute Current Visit: Yes (3) History of cannabis abuse SNOMED Code(s): 035886154 ICD Code: Z87.898 - PERSONAL HISTORY OF OTHER SPECIFIED CONDITIONS Status: Acute Current Visit: Yes (4) Tobacco use during SNOMED Code(s): 645475728053363 ICD Code: O99.330 - SMOKING (TOBACCO) COMPLICATING , UNSP TRIMESTER Status: Acute Current Visit: Yes (5) History of delivery, currently in third trimester SNOMED Code(s): 38862039, 43213704 ICD Code: O09.213 - SUPRVSN OF PREG W HISTORY OF PRE-TERM LABOR, THIRD TRIMESTER Status: Acute Current Visit: Yes (6) Rh negative state in antepartum period SNOMED Code(s): 484985542 ICD Code: O09.899 - SUPERVISION OF OTHER HIGH RISK PREGNANCIES, UNSP TRIMESTER; Z67.91 - UNSPECIFIED BLOOD TYPE, RH NEGATIVE Status: Acute Current Visit: Yes (7) Chlamydia infection affecting in first trimester, antepartum SNOMED Code(s): 677658355, 840048205 ICD Code: O98.811 - OTH MATERNAL INFEC/PARASTC DISEASES COMP PREG, FIRST TRI ; A74.9 - CHLAMYDIAL INFECTION, UNSPECIFIED Status: Acute Current Visit: Yes (8) Anxiety disorder SNOMED Code(s): 613258157 ICD Code: F41.9 - ANXIETY DISORDER, UNSPECIFIED Status: Acute Current Visit: Yes (9) UTI, Urinary tract infection in SNOMED Code(s): 157598202 ICD Code: O23.40 - UNSP INFECTION OF URINARY TRACT IN , UNSP TRIMESTER Status: Acute Current Visit: No Problem List Initiated/Reviewed/Updated: Yes Orders Last 24hrs: Active Orders 24 hr Category Date Time Status Patient Status [ADT] Routine ADT 09/02/17 15:57 Active Activity as Tolerated [RC] PFP Care 09/02/17 15:57 Active Communication Order [RC] ASDIRECTED Care 09/02/17 15:57 Active Heart Tones [RC] ASDIRECTED Care 09/02/17 15:58 Active Notify Provider [RC] PFP Care 09/02/17 15:57 Active Notify Provider [RC] PRN Care 09/02/17 15:57 Active Peripheral IV Care [RC] . DIRECTED Care 09/02/17 15:58 Active Vital Signs [RC] PER UNIT ROUTINE Care 09/02/17 15:57 Active Consult to Agricultural Extension Officer [CONS] Routine Cons 09/02/17 15:57 Active Regular Diet [DIET] Diet 09/02/17 Dinner Active DRUG SCREEN, URINE [URCHEM] Routine Lab 09/02/17 16:55 Ordered GROUP B STREP BY PCR [MOLEC] Routine Lab 09/02/17 16:09 Received HEPATITIS C ANTIBODY [CHEM] Routine Lab 09/02/17 16:55 Ordered HIV I/II AG/AB 4TH GEN [REF] Routine Lab 09/02/17 16:55 Ordered RAPID PLASMA REAGIN,RPR [CHEM] Routine Lab 09/02/17 16:55 Ordered Lactated Ringers [Ringers, Lactated] 1,000 ml Med 09/02/17 16:00 Active IV ASDIRECTED Oxytocin/Lactated Ringers [Pitocin in LR 10 Units/1,000 Med 09/02/17 16:00 Active ML] 10 unit in 1,000 ml IV .CONTINUOUS Sodium Chloride 0.9% [Saline Flush] Med 09/02/17 15:57 Active 10 ml FLUSH ASDIRECTED PRN Electronic Heart Tones Ext w TOCO [WOMSER] Oth 09/02/17 15:57 Ordered Routine Electronic Heart Tones Internal [WOMSER] Per Unit Oth 09/02/17 15:57 Ordered Routine Peripheral IV Insertion Adult [OM.PC] Routine Oth 09/02/17 15:57 Ordered Resuscitation Status Routine Resus Stat 09/02/17 15:57 Ordered Medication Orders Lactated Ringer's (Ringers, Lactated) 1,000 mls @ 100 mls/hr IV ASDIRECTED AMBERLY Oxytocin/Lactated Ringer's (Pitocin In Lr 10 Units/1,000 Ml) 10 unit in 1,000 mls @ 500 mls/hr IV .CONTINUOUS AMBERLY Sodium Chloride (Saline Flush) 10 ml FLUSH ASDIRECTED PRN PRN Reason: Keep Vein Open Assessment/Plan Comment:: Refer to observation for active labor Patient with unknown GBS date but is currently 37 weeks gestational age and no history of GBS sepsis in previous , she is not currently ruptured and she does not have a fever so will collect GBS swab and treat if swab comes back positive GBS swab for unknown GBS CBC, HIV, hepatitis C and RPR Urine drug screen and will also collect a segment of cord for drug testing due to history of methamphetamine and marijuana use in Continuous monitoring Place IV and have Lactated Ringer's Small amounts of regular diet Activity as tolerated May have epidural as desied Plans to breast-feed after delivery Tobacco use in , patient to candidate for pneumococcal vaccine on this previously received, patient declined smoking cessation aides or medications UTI in and so will collect a urinalysis to check for urinary tract infection at this time Anticipate vaginal delivery unless otherwise indicated Darek Ordoñez MD 5:22 PM 09/02/2017
[2017-09-02] MEDS ORDERED: ePHEDrine 50 MG/ML SDV IVPUSH PRN (17:16)
[2017-09-02] MEDS ORDERED: fentaNYL 100 MCG/2 ML SDV EPIDUR PRN (17:16)
[2017-09-02] MEDS ORDERED: diphenhydrAMINE 50 MG/ML SDV IVPUSH PRN (17:16)
[2017-09-02] MEDS ORDERED: Bupivacaine/fentaNYL/NS 100 ML Bag EPIDUR SCH (17:30)
--- NOTE | 2017-09-02 17:37 | PCM.PREANE ---
Preanesthetic Assessment - Procedure Proposed Procedure: lloyd - Anesthesia/Transfusion/Family Hx Anesthesia History: Prior Anesthesia Without Reaction Family History of Anesthesia Reaction: No Transfusion History: No Prior Transfusion(s) - Review of Systems General: No Symptoms Pulmonary: No Symptoms Cardiovascular: No Symptoms Gastrointestinal: No Symptoms Neurological: No Symptoms Other: Reports: None - Physical Assessment Pulse: 96 O2 Sat by Pulse Oximetry: 99 Blood Pressure: 112/66 Vital Signs: Last Vital Signs Temp Pulse 96 09/02/17 17:00 Resp BP 112/66 09/02/17 17:00 Pulse Ox 99 09/02/17 16:36 Height: 5 ft 3 in Weight: 74.389 kg ASA Class: 2 Mental Status: Alert & Oriented x3 Airway Class: Mallampati = 1 Dentition: Reports: Normal Dentition Thyro-Mental Finger Breadths: 3 Mouth Opening Finger Breadths: 3 ROM/Head Extension: Full Lungs: Clear to Auscultation, Normal Respiratory Effort Cardiovascular: Regular Rate, Regular Rhythm - Lab Values: Laboratory Last Values WBC 14.63 K/mm3 (3.98-10.04) H 09/02/17 16:10 RBC 3.57 M/mm3 (3.98-5.22) L 09/02/17 16:10 Hgb 11.0 gm/L (11.2-15.7) L 09/02/17 16:10 Hct 33.0 % (34.1-44.9) L 09/02/17 16:10 MCV 92.4 fl (79.4-94.8) 09/02/17 16:10 MCH 30.8 pg (25.6-32.2) 09/02/17 16:10 MCHC 33.3 g/dl (32.2-35.5) 09/02/17 16:10 RDW Std Deviation 43.2 fL (36.4-46.3) 09/02/17 16:10 Plt Count 263 K/mm3 (182-369) 09/02/17 16:10 MPV 10.4 fl (9.4-12.3) 09/02/17 16:10 Urine Color Yellow (Yellow) 09/02/17 16:20 Urine Appearance Slt cloudy (Clear) H 09/02/17 16:20 Urine pH 7.0 (5.0-8.0) 09/02/17 16:20 Ur Specific Lilly > or = 1.030 (1.005-1.030) 09/02/17 16:20 Urine Protein 1+ (Negative) H 09/02/17 16:20 Urine Glucose (UA) Trace (Negative) H 09/02/17 16:20 Urine Ketones Trace (Negative) H 09/02/17 16:20 Urine Occult Blood 3+ (Negative) H 09/02/17 16:20 Urine Nitrite Negative (Negative) 09/02/17 16:20 Urine Bilirubin Negative (Negative) 09/02/17 16:20 Urine Urobilinogen 1.0 (0.2-1.0) 09/02/17 16:20 Ur Leukocyte Esterase 1+ (Negative) H 09/02/17 16:20 - Allergies Allergies/Adverse Reactions: Allergies Allergy/AdvReac Type Severity Reaction Status Date / Time No Known Allergies Allergy Verified 10/01/16 16:24 - Blood Blood Available: No - Acknowledgements Anesthesia Type Planned: Epidural Pt an Appropriate Candidate for the Planned Anesthesia: Yes Alternatives and Risks of Anesthesia Discussed w Pt/Guardian: Yes Pt/Guardian Understands and Agrees with Anesthesia Plan: Yes PreAnesthesia Questionnaire - Past Health History Medical/Surgical History: Denies Medical/Surgical History HEENT History: Reports: Other (See Below) Other HEENT History: glass in eye one time, corneal abrasion Respiratory History: Reports: None Gastrointestinal History: Reports: GERD (with preg), Other (See Below) Other Gastrointestinal History: exploratory laproscopy Genitourinary History: Reports: UTI, Recurrent Other Genitourinary History: 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: Polycystic Ovaries Other OB/BYN History: 2 children and 2 misscarriages; births have been vaginal deliveries Psychiatric History: Reports: Anxiety Hematologic History: Reports: Anemia, Iron Deficiency - Infectious Disease History Infectious Disease History: Reports: None - Past Surgical History HEENT Surgical History: Reports: Oral Surgery Female Surgical History: Reports: D&C Other Female Surgeries/Procedures: Diagnostic laparoscopy for pelvic pain - History Comment History Comment: tylenol prn - SUBSTANCE USE Smoking Status *Q: Current Every Day Smoker (0.5 pack per day) Tobacco Use Within Last Twelve Months: Cigarettes Second Hand Smoke Exposure: Yes Days Per Week of Alcohol Use: 0 Recreational Drug Use History: No Recreational Drug Type: Reports: Marijuana/Hashish (Reports last use approximately one month ago.), Methamphetamine (Reports last used approximately 2.5 months ago. Reports she completed drug rehabilitation approximately 2 months ago.) - CURRENT (IN HOUSE) MEDS Current Meds: Current Medications Diphenhydramine HCl (Benadryl) 25 mg IVPUSH Q6H PRN PRN Reason: pruritis Ephedrine Sulfate (Ephedrine Sulfate) 5 mg IVPUSH ASDIRECTED PRN PRN Reason: Hypotension Fentanyl (Sublimaze) 100 mcg EPIDUR Q3H PRN PRN Reason: Pain Fentanyl/Bupivacaine HCl (Fentanyl/Bupivacaine/Ns 2 Mcg-0.125% 100 Ml) 100 ml EPIDUR ASDIRECTED AMBERLY Lactated Ringer's (Ringers, Lactated) 1,000 mls @ 100 mls/hr IV ASDIRECTED AMBERLY Last Admin: 09/02/17 17:17 Dose: 125 mls/hr Oxytocin/Lactated Ringer's (Pitocin In Lr 10 Units/1,000 Ml) 10 unit in 1,000 mls @ 500 mls/hr IV .CONTINUOUS [facility] Sodium Chloride (Saline Flush) 10 ml FLUSH ASDIRECTED PRN PRN Reason: Keep Vein Open Discontinued Medications Lidocaine HCl (Xylocaine 1%) 50 ml INJECT ONETIME ONE Stop: 09/02/17 15:58
[2017-09-02] MEDS ORDERED: Misoprostol 200 MCG Tab ONE (18:27)
[2017-09-02] MEDS ORDERED: Misoprostol 200 MCG Tab RECTAL ONE (18:30)
[2017-09-02] MEDS ORDERED: Misoprostol 200 MCG Tab PO ONE (18:30)
[2017-09-02] MEDS ORDERED: Misoprostol 25 MCG (1/4 of 100 MCG) Tab RECTAL ONE (18:30)
--- NOTE | 2017-09-02 18:59 | PCM.DEL ---
L & D Note - General Info Date of Service: 09/02/17 Mother's Due Date: 09/23/17 - Delivery Note Labor: Spontaneous, Augmented by ARM Infant Delivery Method: Spontaneous Vaginal Delivery-Single Presentation: Right Occiput Anterior (ALEKSANDAR) Nuchal Cord: Present (x 1), Reduced Anesthesia Type: Epidural Amniotic Fluid Description: Clear Episiotomy Type: None Laceration: 1st Degree, Periurethral (right side, hemostatic and not repaired) Placenta: Intact, Spontaneous Cord: 3 Vessels Estimated Blood Loss: 400 Resuscitation Needed: Yes : Bulb Syringe, Cathether, Stimulated, Warmed, [place] Used, Warmer Used Provider: Sue Miner Score 1 min: 8 Score 5 min: 9 Second Stage Interventions: Reports: Pushing Effectively, Pushing, Pulls Own Legs Back Delivery Comments (Free Text/Narrative):: Stage I: Cherry Stafford was admitted for spontaneous labor. On admission her cervix was dilated to 6 cm. She was GBS unknown and a GBS swab was collected. She did not have any risk factors for GBS prophylaxis and so this was deferred. She was given an epidural for anesthesia. She had artificial rupture membranes with clear fluid. She progressed to complete and pushing. Stage II: On 09/02/2017 she had a normal vaginal delivery of a live male infant at 1814. Apgars of 8 & 9. Weight of 2850 g (6 lbs 5 oz). Length of 19.5 inches. There was a single nuchal cord that was reduced prior to delivery. was delivered in ALEKSANDAR position. The cord was doubly clamped and cut by sister of patient. was placed on mother's abdomen. Stage III: She had a spontaneous delivery of an intact placenta in [place] presentation. Three vessel cord. She was given pitocin and fundal massage. She had a right periurethral first-degree laceration that was hemostatic and not repaired. She had decreased uterine tone without uterine massage and was given Cytotec 1000 mcg rectally. The placenta had several areas of abnormal white coloration on the membrane side with firm nodules present within the placenta. This was sent for pathology for evaluation. Mom and baby were stable to recovery. EBL of 400 mL. Darek Ordoñez MD 6:58 PM 09/02/2017 - General Info Date of Service: 09/02/17 - Patient Data Vitals - Most Recent: Last Vital Signs Temp Pulse 96 09/02/17 17:37 Resp BP 112/66 09/02/17 17:37 Pulse Ox 99 09/02/17 17:37 Weight - Most Recent: 74.389 kg Lab Results Last 24 Hours: Laboratory Results - last 24 hr 09/02/17 09/02/17 09/02/17 Range/Units 16:10 16:10 16:10 WBC 14.63 H (3.98-10.04) K/mm3 RBC 3.57 L (3.98-5.22) M/mm3 Hgb 11.0 L (11.2-15.7) gm/L Hct 33.0 L (34.1-44.9) % MCV 92.4 (79.4-94.8) fl MCH 30.8 (25.6-32.2) pg MCHC 33.3 (32.2-35.5) g/dl RDW Std Deviation 43.2 (36.4-46.3) fL Plt Count 263 (182-369) K/mm3 MPV 10.4 (9.4-12.3) fl Urine Color (Yellow) Urine Appearance (Clear) Urine pH (5.0-8.0) Ur Specific [place] (1.005-1.030) Urine Protein (Negative) Urine Glucose (UA) (Negative) Urine Ketones (Negative) Urine Occult Blood (Negative) Urine Nitrite (Negative) Urine Bilirubin (Negative) Urine Urobilinogen (0.2-1.0) Ur Leukocyte Esterase (Negative) Urine Opiates Screen (NEGATIVE) Ur Buprenorphine Scrn (NEGATIVE) Ur Oxycodone Screen (NEGATIVE) Urine Methadone Screen (NEGATIVE) Ur Propoxyphene Screen (NEGATIVE) Ur Barbiturates Screen (NEGATIVE) Ur Tricyclics Screen (NEGATIVE) Ur Phencyclidine Scrn (NEGATIVE) Ur Amphetamine Screen (NEGATIVE) U Methamphetamines Scrn (NEGATIVE) U Benzodiazepines Scrn (NEGATIVE) U Cocaine Metab Screen (NEGATIVE) U Marijuana (THC) Screen (NEGATIVE) Hepatitis C Antibody Negative (NEGATIVE) HIV-1 Ab Rapid Screen Negative (NEGATIVE) 09/02/17 09/02/17 Range/Units 16:20 16:20 WBC (3.98-10.04) K/mm3 RBC (3.98-5.22) M/mm3 Hgb (11.2-15.7) gm/L Hct (34.1-44.9) % MCV (79.4-94.8) fl MCH (25.6-32.2) pg MCHC (32.2-35.5) g/dl RDW Std Deviation (36.4-46.3) fL Plt Count (182-369) K/mm3 MPV (9.4-12.3) fl Urine Color Yellow (Yellow) Urine Appearance Slt cloudy H (Clear) Urine pH 7.0 (5.0-8.0) Ur Specific [place] > or = 1.030 (1.005-1.030) Urine Protein 1+ H (Negative) Urine Glucose (UA) Trace H (Negative) Urine Ketones Trace H (Negative) Urine Occult Blood 3+ H (Negative) Urine Nitrite Negative (Negative) Urine Bilirubin Negative (Negative) Urine Urobilinogen 1.0 (0.2-1.0) Ur Leukocyte Esterase 1+ H (Negative) Urine Opiates Screen Negative (NEGATIVE) Ur Buprenorphine Scrn Negative (NEGATIVE) Ur Oxycodone Screen Negative (NEGATIVE) Urine Methadone Screen Negative (NEGATIVE) Ur Propoxyphene Screen Negative (NEGATIVE) Ur Barbiturates Screen Negative (NEGATIVE) Ur Tricyclics Screen Negative (NEGATIVE) Ur Phencyclidine Scrn Negative (NEGATIVE) Ur Amphetamine Screen Negative (NEGATIVE) U Methamphetamines Scrn Negative (NEGATIVE) U Benzodiazepines Scrn Negative (NEGATIVE) U Cocaine Metab Screen Negative (NEGATIVE) U Marijuana (THC) Screen Presumptive positive H (NEGATIVE) Hepatitis C Antibody (NEGATIVE) HIV-1 Ab Rapid Screen (NEGATIVE) Med Orders - Current: Current Medications Diphenhydramine HCl (Benadryl) 25 mg IVPUSH Q6H PRN PRN Reason: pruritis Ephedrine Sulfate (Ephedrine Sulfate) 5 mg IVPUSH ASDIRECTED PRN PRN Reason: Hypotension Fentanyl (Sublimaze) 100 mcg EPIDUR Q3H PRN PRN Reason: Pain Last Admin: 09/02/17 17:37 Dose: 100 mcg Fentanyl/Bupivacaine HCl (Fentanyl/Bupivacaine/Ns 2 Mcg-0.125% 100 Ml) 100 ml EPIDUR ASDIRECTED AMBERLY Lactated Ringer's (Ringers, Lactated) 1,000 mls @ 100 mls/hr IV ASDIRECTED AMBERLY Last Admin: 09/02/17 17:17 Dose: 125 mls/hr Oxytocin/Lactated Ringer's (Pitocin In Lr 10 Units/1,000 Ml) 10 unit in 1,000 mls @ 500 mls/hr IV .CONTINUOUS [facility] Sodium Chloride (Saline Flush) 10 ml FLUSH ASDIRECTED PRN PRN Reason: Keep Vein Open Discontinued Medications Lidocaine HCl (Xylocaine 1%) 50 ml INJECT ONETIME ONE Stop: 09/02/17 15:58 Misoprostol (Cytotec) Confirm Administered Dose 1,000 mcg .ROUTE .STK-MED ONE Stop: 09/02/17 18:28 Misoprostol (Cytotec) 1,000 mcg RECTAL ONETIME ONE Stop: 09/02/17 18:31 - Problem List & Annotations (1) 37 weeks gestation of SNOMED Code(s): 51866648 Code(s): Z3A.37 - 37 WEEKS GESTATION OF Status: Acute Current Visit: Yes (2) History of methamphetamine abuse SNOMED Code(s): 047915305 Code(s): Z87.898 - PERSONAL HISTORY OF OTHER SPECIFIED CONDITIONS Status: Acute Current Visit: Yes (3) History of cannabis abuse SNOMED Code(s): 874500917 Code(s): Z87.898 - PERSONAL HISTORY OF OTHER SPECIFIED CONDITIONS Status: Acute Current Visit: Yes (4) Tobacco use during SNOMED Code(s): 864736126363556 Code(s): O99.330 - SMOKING (TOBACCO) COMPLICATING , UNSP TRIMESTER Status: Acute Current Visit: Yes (5) History of delivery, currently in third trimester SNOMED Code(s): 33474628, 69394571 Code(s): O09.213 - SUPRVSN OF PREG W HISTORY OF PRE-TERM LABOR, THIRD TRIMESTER Status: Acute Current Visit: Yes (6) Rh negative state in antepartum period SNOMED Code(s): 363950736 Code(s): O09.899 - SUPERVISION OF OTHER HIGH RISK PREGNANCIES, UNSP TRIMESTER ; Z67.91 - UNSPECIFIED BLOOD TYPE, RH NEGATIVE Status: Acute Current Visit: Yes (7) Chlamydia infection affecting in first trimester, antepartum SNOMED Code(s): 076659710, 446544967 Code(s): O98.811 - OTH MATERNAL INFEC/PARASTC DISEASES COMP PREG, FIRST TRI; A74.9 - CHLAMYDIAL INFECTION, UNSPECIFIED Status: Acute Current Visit: Yes (8) Anxiety disorder SNOMED Code(s): 845716130 Code(s): F41.9 - ANXIETY DISORDER, UNSPECIFIED Status: Acute Current Visit: Yes (9) UTI, Urinary tract infection in SNOMED Code(s): 270545424 Code(s): O23.40 - UNSP INFECTION OF URINARY TRACT IN , UNSP TRIMESTER Status: Acute Current Visit: No (10) Vaginal delivery SNOMED Code(s): 174072100 Code(s): O80 - ENCOUNTER FOR FULL-TERM UNCOMPLICATED DELIVERY Status: Acute Current Visit: Yes (11) Laceration of periurethral tissue with delivery, delivered SNOMED Code(s): 601525273 Code(s): O71.89 - OTHER SPECIFIED OBSTETRIC TRAUMA Status: Acute Current Visit: Yes (12) GBS screening not performed SNOMED Code(s): 731112060 Code(s): ZJY6369 - Status: Acute Current Visit: Yes - Problem List Review Problem List Initiated/Reviewed/Updated: Yes - My Orders Last 24 Hours: My Active Orders 09/02/17 15:57 Patient Status [ADT] Routine Activity as Tolerated [RC] PFP Communication Order [RC] ASDIRECTED Notify Provider [RC] PFP Notify Provider [RC] PRN Vital Signs [RC] PER UNIT ROUTINE Consult to Sales Solutions Associate [CONS] Routine Sodium Chloride 0.9% [Saline Flush] 10 ml FLUSH ASDIRECTED PRN Electronic Heart Tones Ext w TOCO [WOMSER] Routine Electronic Heart Tones Internal [WOMSER] Per Unit Routine Peripheral IV Insertion Adult [OM.PC] Routine Resuscitation Status Routine 09/02/17 15:58 Heart Tones [RC] ASDIRECTED Peripheral IV Care [RC] . DIRECTED 09/02/17 16:00 Lactated Ringers [Ringers, Lactated] 1,000 ml IV ASDIRECTED Oxytocin/Lactated Ringers [Pitocin in LR 10 Units/1,000 ML] 10 unit in 1,000 ml IV .CONTINUOUS 09/02/17 16:09 GROUP B STREP BY PCR [MOLEC] Routine 09/02/17 16:10 RAPID PLASMA REAGIN,RPR [CHEM] Routine 09/02/17 16:20 DRUG SCREEN, URINE [URCHEM] Routine URINALYSIS W/O MICROSCOPIC [UA W/O MICROSCOPIC] [URIN] Routine 09/02/17 18:49 Patient Status Manage Transfer [TRANSFER] Routine 09/02/17 Dinner Regular Diet [DIET] - Plan Plan:: Admit to inpatient following normal spontaneous vaginal delivery Continue Pitocin per unit protocol following delivery of placenta and lactated Ringer's until tolerating regular diet Regular diet Vitals per unit routine Ibuprofen and Tylenol for pain control Assist with breast-feeding as needed Continue to monitor lochia Patient with unknown GBS date but is currently 37 weeks gestational age and no history of GBS sepsis in previous , she is not currently ruptured and she does not have a fever. Will follow-up on GBS swab CBC, HIV, hepatitis C and RPR pending Urine drug screen returned is presumptive positive for marijuana, all other were negative Activity as tolerated Tobacco use in , patient a candidate for pneumococcal vaccine on this previously received, patient declined smoking cessation aides or medications UTI in and so will collect a urinalysis to check for urinary tract infection at this time Anticipate discharge home on day #1 or 2 depending on the infant's status Darek Ordoñez MD 7:03 PM 09/02/2017
[2017-09-02] MEDS ORDERED: Pneumococcal Polyvalent-23 Vaccine 0.5 ML SDV SUBCUT ONE (20:27)
[2017-09-02] MEDS ORDERED: Docusate Sodium 100 MG Cap PO PRN (20:41)
[2017-09-02] MEDS ORDERED: Witch Hazel Medicated Pads 100/Jar TOP PRN (20:41)
[2017-09-02] MEDS ORDERED: Acetaminophen 325 MG Tab PO PRN (20:41)
[2017-09-02] MEDS ORDERED: Measles, Mumps & Rubella Vaccine 0.5 ML SDV SUBCUT ONE (20:41)
[2017-09-02] MEDS ORDERED: Benzocaine/Menthol 20%-0.5% Spray 56 GM Canister TOP PRN (20:41)
[2017-09-02] MEDS ORDERED: Hydrocortisone Acetate 25 MG Supp RECTAL PRN (20:41)
[2017-09-02] MEDS ORDERED: Lanolin 100% Cream 7 GM Tube TOP PRN (20:41)
[2017-09-02] MEDS: Ibuprofen 600 MG Tab PO PRN (20:58)
[2017-09-02] MEDS ORDERED: Bupivacaine 0.25% 10 ML SDV ONE (22:00)
[2017-09-03] MEDS: Prenatal Multivitamin with Calcium/Folic Acid/Iron Tab PO SCH (09:48)
[2017-09-03] MEDS: Ibuprofen 600 MG Tab PO PRN ×2 (09:48→17:48)
--- NOTE | 2017-09-03 12:35 | PCM.SN ---
- Free Text/Narrative Note: Post Progress Note PPD #1 Subjective: Doing well overall. Ambulating without difficulty. Lochia minimal. Voiding without difficulty. Tolerating regular diet without nausea or vomiting this morning. She reports that she did have some nausea last night but this resolved after eating. Pain overall able to be controlled with oral medications but having some cramping pain. Breast feeding with minimal difficulty. Objective: Vitals: Vital Signs - 24 hr 09/02/17 09/02/17 09/02/17 16:36 17:00 17:32 Temperature Pulse, 128 H 96 87 Peripheral Respiratory Rate Blood Pressure 124/80 112/66 120/72 O2 Sat by Pulse 99 Oximetry 09/02/17 09/02/17 09/02/17 17:37 18:02 18:30 Temperature Pulse, 96 95 76 Peripheral Respiratory Rate Blood Pressure 112/66 97/55 L O2 Sat by Pulse 99 97 Oximetry 09/02/17 09/02/17 09/02/17 19:00 19:30 20:00 Temperature Pulse, 70 75 89 Peripheral Respiratory Rate Blood Pressure 105/59 L 109/63 111/73 O2 Sat by Pulse Oximetry 09/02/17 09/02/17 09/02/17 20:30 21:13 23:17 Temperature 37.8 C 37.1 C Pulse, 88 80 87 Peripheral Respiratory 16 16 Rate Blood Pressure 113/71 119/77 119/63 O2 Sat by Pulse 98 97 Oximetry 09/03/17 09/03/17 02:56 10:24 Temperature 36.7 C 37.2 C Pulse, 69 91 Peripheral Respiratory 16 16 Rate Blood Pressure 118/93 H 107/66 O2 Sat by Pulse 96 96 Oximetry Physical Exam General: Alert and oriented, no acute distress Lungs: Clear to auscultation bilaterally Heart: Regular rate and rhythm Abdomen: Soft, minimal appropriate tenderness, non-distended, fundus midline, nontender, and 2 finger breadths below the umbilicus Extremities: No edema Laboratory Tests 09/02/17 09/02/17 09/02/17 Range/Units 16:09 16:10 16:10 WBC 14.63 H (3.98-10.04) K/mm3 RBC 3.57 L (3.98-5.22) M/mm3 Hgb 11.0 L (11.2-15.7) gm/L Hct 33.0 L (34.1-44.9) % MCV 92.4 (79.4-94.8) fl MCH 30.8 (25.6-32.2) pg MCHC 33.3 (32.2-35.5) g/dl RDW Std Deviation 43.2 (36.4-46.3) fL Plt Count 263 (182-369) K/mm3 MPV 10.4 (9.4-12.3) fl Urine Color (Yellow) Urine Appearance (Clear) Urine pH (5.0-8.0) Ur Specific [place] (1.005-1.030) Urine Protein (Negative) Urine Glucose (UA) (Negative) Urine Ketones (Negative) Urine Occult Blood (Negative) Urine Nitrite (Negative) Urine Bilirubin (Negative) Urine Urobilinogen (0.2-1.0) Ur Leukocyte Esterase (Negative) Urine Opiates Screen (NEGATIVE) Ur Buprenorphine Scrn (NEGATIVE) Ur Oxycodone Screen (NEGATIVE) Urine Methadone Screen (NEGATIVE) Ur Propoxyphene Screen (NEGATIVE) Ur Barbiturates Screen (NEGATIVE) Ur Tricyclics Screen (NEGATIVE) Ur Phencyclidine Scrn (NEGATIVE) Ur Amphetamine Screen (NEGATIVE) U Methamphetamines Scrn (NEGATIVE) U Benzodiazepines Scrn (NEGATIVE) U Cocaine Metab Screen (NEGATIVE) U Marijuana (THC) Screen (NEGATIVE) Hepatitis C Antibody Negative (NEGATIVE) HIV-1 Ab Rapid Screen (NEGATIVE) Group B Strep (PCR) Positive H (NEGATIVE) 09/02/17 09/02/17 09/02/17 Range/Units 16:10 16:20 16:20 WBC (3.98-10.04) K/mm3 RBC (3.98-5.22) M/mm3 Hgb (11.2-15.7) gm/L Hct (34.1-44.9) % MCV (79.4-94.8) fl MCH (25.6-32.2) pg MCHC (32.2-35.5) g/dl RDW Std Deviation (36.4-46.3) fL Plt Count (182-369) K/mm3 MPV (9.4-12.3) fl Urine Color Yellow (Yellow) Urine Appearance Slt cloudy H (Clear) Urine pH 7.0 (5.0-8.0) Ur Specific [place] > or = 1.030 (1.005-1.030) Urine Protein 1+ H (Negative) Urine Glucose (UA) Trace H (Negative) Urine Ketones Trace H (Negative) Urine Occult Blood 3+ H (Negative) Urine Nitrite Negative (Negative) Urine Bilirubin Negative (Negative) Urine Urobilinogen 1.0 (0.2-1.0) Ur Leukocyte Esterase 1+ H (Negative) Urine Opiates Screen Negative (NEGATIVE) Ur Buprenorphine Scrn Negative (NEGATIVE) Ur Oxycodone Screen Negative (NEGATIVE) Urine Methadone Screen Negative (NEGATIVE) Ur Propoxyphene Screen Negative (NEGATIVE) Ur Barbiturates Screen Negative (NEGATIVE) Ur Tricyclics Screen Negative (NEGATIVE) Ur Phencyclidine Scrn Negative (NEGATIVE) Ur Amphetamine Screen Negative (NEGATIVE) U Methamphetamines Scrn Negative (NEGATIVE) U Benzodiazepines Scrn Negative (NEGATIVE) U Cocaine Metab Screen Negative (NEGATIVE) U Marijuana (THC) Screen Presumptive positive H (NEGATIVE) Hepatitis C Antibody (NEGATIVE) HIV-1 Ab Rapid Screen Negative (NEGATIVE) Group B Strep (PCR) (NEGATIVE) ASSESSMENT: 26-year-old female G 5 P 2123 s/p normal vaginal delivery PPD #1, complicated by history of methamphetamine and marijuana use in , UTI in , rubella equivocal status, history of delivery, tobacco use in , history of depression and GBS unknown status and her swab returned as positive after delivery PLAN: Doing well Breast feeding with minimal difficulty. Assist as needed Lochia minimal. Continue to monitor for appropriate lochia. Continue routine care Infant with O- blood type and RhoGAM not indicated Will contact motion picture cameraman about positive GBS status of mother and is not receiving antibiotics in labor. Will follow-up on social work consult Concern for possible urinary tract infection based on urinalysis and urine culture pending Patient to receive the MMR and pneumococcal vaccine prior to discharge. Patient has high risk factors with tobacco use as indication for pneumococcal vaccine Anticipate discharge home tomorrow Darek Ordoñez MD 12:33 PM 09/03/2017
[2017-09-04] MEDS: Ibuprofen 600 MG Tab PO PRN ×2 (04:34→10:33)
--- NOTE | 2017-09-04 09:38 | PCM.SN ---
- Free Text/Narrative Note: Post Progress Note PPD #2 Subjective: Doing well overall. Ambulating without difficulty. Lochia minimal but noted small increase last evening, continues to be less than a normal menstrual cycle. Voiding without difficulty. Tolerating regular diet without nausea or vomiting. Pain controlled with oral medications. Breast feeding with minimal difficulty. Objective: Vitals: Vital Signs - 24 hr 09/03/17 09/03/17 09/03/17 10:24 15:21 17:41 Temperature 37.2 C 37.2 C Temperature [ 36.9 C Temporal] Pulse, 91 75 Peripheral Respiratory 16 16 Rate Blood Pressure 107/66 116/71 O2 Sat by Pulse 96 99 Oximetry 09/03/17 09/04/17 20:48 04:28 Temperature 36.7 C 36.4 C Temperature [ Temporal] Pulse, 88 83 Peripheral Respiratory 16 16 Rate Blood Pressure 112/60 104/71 O2 Sat by Pulse 98 98 Oximetry Physical Exam General: Alert and oriented, no acute distress Lungs: Clear to auscultation bilaterally Heart: Regular rate and rhythm Abdomen: Soft, minimal appropriate tenderness, non-distended, fundus midline, nontender, and 3 finger breadths below the umbilicus Extremities: Trace edema in bilateral lower extremities to mid shins ASSESSMENT: 26-year-old female G 5 P 2123 s/p normal vaginal delivery PPD #2, complicated by history of methamphetamine and marijuana use in , UTI in , rubella equivocal status, history of delivery, tobacco use in , history of depression and GBS unknown status and her swab returned as positive after delivery PLAN: Doing well Breast feeding with minimal difficulty. Assist as needed Lochia minimal. Continue to monitor for appropriate lochia. Continue routine care with O- blood type and RhoGAM not indicated Patient with positive GBS swab determined after delivery, discussion with millwright apprentice and he states no signs of infection and and okay for discharge today. Social work consults completed and reported filed with CPS but patient determined okay to be discharged with to home. Additional follow-up by CPS will be done. Patient to receive the MMR and pneumococcal vaccine prior to discharge. Patient has high risk factors with tobacco use as indication for pneumococcal vaccine Discharge home today Darek Ordoñez MD 9:34 AM 09/04/2017
--- NOTE | 2017-09-04 09:43 | PCM.DCSUM1 ---
Discharge Summary - Hospital Course Free Text/Narrative:: Stage I: Cherry Stafford was admitted for spontaneous labor. On admission her cervix was dilated to 6 cm. She was GBS unknown and a GBS swab was collected. She did not have any risk factors for GBS prophylaxis and so this was deferred. She was given an epidural for anesthesia. She had artificial rupture membranes with clear fluid. She progressed to complete and pushing. Stage II: On 09/02/2017 she had a normal vaginal delivery of a live male at 1814. Apgars of 8 & 9. Weight of 2850 g (6 lbs 5 oz). Length of 19.5 inches. There was a single nuchal cord that was reduced prior to delivery. was delivered in ALEKSANDAR position. The cord was doubly clamped and cut by sister of patient. was placed on mother's abdomen. Stage III: She had a spontaneous delivery of an intact placenta in Henry presentation. Three vessel cord. She was given pitocin and fundal massage. She had a right periurethral first-degree laceration that was hemostatic and not repaired. She had decreased uterine tone without uterine massage and was given Cytotec 1000 mcg rectally. The placenta had several areas of abnormal white coloration on the membrane side with firm nodules present within the placenta. This was sent for pathology for evaluation. Mom and baby were stable to recovery. EBL of 400 mL. HPI Initial Comments: Stage I: Cherry Stafford was admitted for spontaneous labor. On admission her cervix was dilated to 6 cm. She was GBS unknown and a GBS swab was collected. She did not have any risk factors for GBS prophylaxis and so this was deferred. She was given an epidural for anesthesia. She had artificial rupture membranes with clear fluid. She progressed to complete and pushing. Stage II: On 09/02/2017 she had a normal vaginal delivery of a live male at 1814. Apgars of 8 & 9. Weight of 2850 g (6 lbs 5 oz). Length of 19.5 inches. There was a single nuchal cord that was reduced prior to delivery. Infant was delivered in ALEKSANDAR position. The cord was doubly clamped and cut by sister of patient. was placed on mother's abdomen. Stage III: She had a spontaneous delivery of an intact placenta in Henry presentation. Three vessel cord. She was given pitocin and fundal massage. She had a right periurethral first-degree laceration that was hemostatic and not repaired. She had decreased uterine tone without uterine massage and was given Cytotec 1000 mcg rectally. The placenta had several areas of abnormal white coloration on the membrane side with firm nodules present within the placenta. This was sent for pathology for evaluation. Mom and baby were stable to recovery. EBL of 400 mL. Brief History: Stage I: Cherry Stafford was admitted for spontaneous labor. On admission her cervix was dilated to 6 cm. She was GBS unknown and a GBS swab was collected. She did not have any risk factors for GBS prophylaxis and so this was deferred. She was given an epidural for anesthesia. She had artificial rupture membranes with clear fluid. She progressed to complete and pushing. Stage II: On 09/02/2017 she had a normal vaginal delivery of a live male at 1814. Apgars of 8 & 9. Weight of 2850 g (6 lbs 5 oz). Length of 19.5 inches. There was a single nuchal cord that was reduced prior to delivery. was delivered in ALEKSANDAR position. The cord was doubly clamped and cut by sister of patient. Infant was placed on mother's abdomen. Stage III: She had a spontaneous delivery of an intact placenta in Henry presentation. Three vessel cord. She was given pitocin and fundal massage. She had a right periurethral first-degree laceration that was hemostatic and not repaired. She had decreased uterine tone without uterine massage and was given Cytotec 1000 mcg rectally. The placenta had several areas of abnormal white coloration on the membrane side with firm nodules present within the placenta. This was sent for pathology for evaluation. Mom and baby were stable to recovery. EBL of 400 mL. - Discharge Data Discharge Date: 09/04/17 Discharge Disposition: Home, Self-Care 01 Condition: Good - Discharge Diagnosis/Problem(s) (1) 37 weeks gestation of SNOMED Code(s): 82494430 ICD Code: Z3A.37 - 37 WEEKS GESTATION OF Status: Acute Current Visit: Yes (2) History of methamphetamine abuse SNOMED Code(s): 473350324 ICD Code: Z87.898 - PERSONAL HISTORY OF OTHER SPECIFIED CONDITIONS Status: Acute Current Visit: Yes (3) History of cannabis abuse SNOMED Code(s): 848832708 ICD Code: Z87.898 - PERSONAL HISTORY OF OTHER SPECIFIED CONDITIONS Status: Acute Current Visit: Yes (4) Tobacco use during SNOMED Code(s): 978675992854460 ICD Code: O99.330 - SMOKING (TOBACCO) COMPLICATING , UNSP TRIMESTER Status: Acute Current Visit: Yes (5) History of delivery, currently in third trimester SNOMED Code(s): 34902159, 48232378 ICD Code: O09.213 - SUPRVSN OF PREG W HISTORY OF PRE-TERM LABOR, THIRD TRIMESTER Status: Acute Current Visit: Yes (6) Rh negative state in antepartum period SNOMED Code(s): 650624465 ICD Code: O09.899 - SUPERVISION OF OTHER HIGH RISK PREGNANCIES, UNSP TRIMESTER; Z67.91 - UNSPECIFIED BLOOD TYPE, RH NEGATIVE Status: Acute Current Visit: Yes (7) Chlamydia infection affecting in first trimester, antepartum SNOMED Code(s): 151536208, 782489925 ICD Code: O98.811 - OTH MATERNAL INFEC/PARASTC DISEASES COMP PREG, FIRST TRI ; A74.9 - CHLAMYDIAL INFECTION, UNSPECIFIED Status: Acute Current Visit: Yes (8) Anxiety disorder SNOMED Code(s): 736371395 ICD Code: F41.9 - ANXIETY DISORDER, UNSPECIFIED Status: Acute Current Visit: Yes (9) UTI, Urinary tract infection in SNOMED Code(s): 234902830 ICD Code: O23.40 - UNSP INFECTION OF URINARY TRACT IN , UNSP TRIMESTER Status: Acute Current Visit: No (10) Vaginal delivery SNOMED Code(s): 981272516 ICD Code: O80 - ENCOUNTER FOR FULL-TERM UNCOMPLICATED DELIVERY Status: Acute Current Visit: Yes (11) Laceration of periurethral tissue with delivery, delivered SNOMED Code(s): 604991861 ICD Code: O71.89 - OTHER SPECIFIED OBSTETRIC TRAUMA Status: Acute Current Visit: Yes (12) GBS screening not performed SNOMED Code(s): 708304563 ICD Code: NAF2511 - Status: Acute Current Visit: Yes (13) GBS carrier SNOMED Code(s): 5666063287230 ICD Code: Z22.330 - CARRIER OF GROUP B STREPTOCOCCUS Status: Acute Current Visit: Yes - Patient Summary/Data Complications: Positive GBS swab determined after delivery and no antibiotics received in labor Consults: Consultations 09/02/17 15:57 Consult to Hemstitcher [CONS] Routine Hospital Course: Cherry Stafford was admitted for spontaneous labor. On admission her cervix was dilated to 6 cm. She was GBS unknown and a GBS swab was collected. She did not have any risk factors for GBS and so prophylaxis was deferred. She was given an epidural for anesthesia. She had artificial rupture of membranes with clear fluid. She progressed to complete and began pushing. On 09/02/2017 she had a normal vaginal delivery of a live male at 1814. Apgars of 8 and 9. Weight of 2850 g (6 lbs. 5 oz.). Her course was uneventful. Her GBS swab returned as positive on day #1 and she was kept for additional monitoring of . Her pain was well controlled and she had minimal lochia. She was ambulating, tolerating a regular diet and voiding normally. She was breast feeding. She was afebrile and her hematocrit was 33.0 on admission. She desired to be discharged home on the morning of PPD #2. Her blood type is O- and 's blood type was O- and RhoGAM not indicated. Social work was consult that due to history of methamphetamine and marijuana use in . CPS report was filed and per patient's statement she is okay to be discharged home with infant. CPS will have additional follow-up as outpatient. - Patient Instructions Diet: Regular Diet as Tolerated Activity: Apply Ice, As Tolerated Activity, Other: Nothing in the vagina for 6 weeks Driving: May Drive Today Showering/Bathing: May Shower Notify Provider of: Fever, Increased Pain, Swelling and Redness, Drainage, Nausea and/or Vomiting Other/Special Instructions: Please contact Dr. Miner's office if you have heavy vaginal bleeding enough to soak a pad in less than an hour for several hours. - Discharge Plan Home Medications: Home Meds Acetaminophen [Tylenol] 650 mg PO Q6H PRN tablet 09/04/17 [Rx] Benzocaine/Menthol [Dermoplast Pain Relief Haw[place]orn] 1 spray TOP ASDIRECTED PRN canister 09/04/17 [Rx] Docusate Sodium [Colace] 100 mg PO BID PRN cap 09/04/17 [Rx] Hydrocortisone Acetate [Anucort-HC] 25 mg RECTAL BID PRN supp 09/04/17 [Rx] Ibuprofen [Motrin] 600 mg PO Q6H PRN tablet 09/04/17 [Rx] Lanolin [Lansinoh HPA] 1 applic TOP ASDIRECTED PRN tube 09/04/17 [Rx] Vit with Ca/FA/Iron [ Plus Iron] 1 each PO DAILY tablet [Rx] Marie Campbell [Tucks] 1 pad TOP ASDIRECTED PRN pad 09/04/17 [Rx] Patient Handouts: Care of a Perineal Tear, Care After Vaginal Delivery, Steps to Quit Smoking Referrals: Sue Miner MD [Primary Care Provider] - (Follow-up in clinic with Dr. Miner in 3-6 weeks for routine visit.) - Discharge Summary/Plan Comment DC Time >30 min.: No - Patient Data Vitals - Most Recent: Last Vital Signs Temp 36.4 C 09/04/17 04:28 Pulse 83 09/04/17 04:28 Resp 16 09/04/17 04:28 BP 104/71 09/04/17 04:28 Pulse Ox 98 09/04/17 04:28 Weight - Most Recent: 74.389 kg Lab Results - Last 24 hrs: Laboratory Results - last 24 hr 09/02/17 09/02/17 Range/Units 16:09 16:10 RPR Non-reactive (NONREACTIVE) Group B Strep (PCR) Positive H (NEGATIVE) Med Orders - Current: Current Medications Acetaminophen (Tylenol) 650 mg PO Q6H PRN PRN Reason: mild pain or fever Last Admin: 09/03/17 03:01 Dose: 650 mg Benzocaine/Menthol (Dermoplast Pain Relief [place]orn) 0 gm TOP ASDIRECTED PRN PRN Reason: Perineal Comfort Measure Last Admin: 09/02/17 21:00 Dose: 1 applic Docusate Sodium (Colace) 100 mg PO BID PRN PRN Reason: Constipation Last Admin: 09/02/17 20:58 Dose: 100 mg Emollient Ointment (Lansinoh Hpa) 0 gm TOP ASDIRECTED PRN PRN Reason: Sore Nipples Last Admin: 09/02/17 21:00 Dose: 1 applic Hydrocortisone Acetate (Anucort-Hc) 25 mg RECTAL BID PRN PRN Reason: Hemorrhoid pain Oxytocin/Lactated Ringer's (Pitocin In Lr 10 Units/1,000 Ml) 10 unit in 1,000 mls @ 100 mls/hr IV TITRATE AMBERLY; Protocol Ibuprofen (Motrin) 600 mg PO Q6H PRN PRN Reason: Mild pain or fever Last Admin: 09/04/17 04:34 Dose: 600 mg Prenat Multivit/Process Laboratory Specialist/Iron/Folic Ac ( Plus Iron) 1 each PO DAILY AMBERLY Last Admin: 09/03/17 09:48 Dose: 1 each Witch Shannan (Tucks) 1 pad TOP ASDIRECTED PRN PRN Reason: Hemorrhoid pain Last Admin: 09/02/17 20:59 Dose: 1 applic Discontinued Medications Bupivacaine HCl (Sensorcaine-Mpf 0.25%) 10 ml .ROUTE .STK-MED ONE Stop: 09/02/17 22:01 Diphenhydramine HCl (Benadryl) 25 mg IVPUSH Q6H PRN PRN Reason: pruritis Ephedrine Sulfate (Ephedrine Sulfate) 5 mg IVPUSH ASDIRECTED PRN PRN Reason: Hypotension Fentanyl (Sublimaze) 100 mcg EPIDUR Q3H PRN PRN Reason: Pain Last Admin: 09/02/17 17:37 Dose: 100 mcg Fentanyl/Bupivacaine HCl (Fentanyl/Bupivacaine/Ns 2 Mcg-0.125% 100 Ml) 100 ml EPIDUR ASDIRECTED AMBERLY Lactated Ringer's (Ringers, Lactated) 1,000 mls @ 100 mls/hr IV ASDIRECTED AMBERLY Last Admin: 09/02/17 17:17 Dose: 125 mls/hr Oxytocin/Lactated Ringer's (Pitocin In Lr 10 Units/1,000 Ml) 10 unit in 1,000 mls @ 500 mls/hr IV .CONTINUOUS AMBERLY Last Admin: 09/02/17 18:16 Dose: 500 mls/hr Lidocaine HCl (Xylocaine 1%) 50 ml INJECT ONETIME ONE Stop: 09/02/17 15:58 Last Admin: 09/02/17 20:21 Dose: Not Given Measles/Mumps/Rubella Vaccine Live (M-M-R Ii Vaccine) 0.5 ml SUBCUT .ONCE ONE Stop: 09/02/17 20:42 Last Admin: 09/03/17 23:02 Dose: 0.5 ml Misoprostol (Cytotec) Confirm Administered Dose 1,000 mcg .ROUTE .STK-MED ONE Stop: 09/02/17 18:28 Last Admin: 09/02/17 20:21 Dose: Not Given Misoprostol (Cytotec) 1,000 mcg RECTAL ONETIME ONE Stop: 09/02/17 18:31 Last Admin: 09/02/17 20:20 Dose: 1,000 mcg Pneumococcal Polyvalent Vaccine (Pneumovax 23) 0.5 ml SUBCUT .ONCE ONE Stop: 09/02/17 20:28 Last Admin: 09/03/17 23:00 Dose: 0.5 ml Sodium Chloride (Saline Flush) 10 ml FLUSH ASDIRECTED PRN PRN Reason: Keep Vein Open
[2017-09-04] MEDS: Prenatal Multivitamin with Calcium/Folic Acid/Iron Tab PO SCH (10:33)
[2017-09-04 10:45] VITALS: BP 108/75
[2017-09-04] MEDS ORDERED: Misoprostol 200 MCG Tab RECTAL ONE (13:15)
== END 2017-09-04 14:30 | disposition home or self-care (01) | DRG 775 ==
LOC: JD.OBCHECK 15:17 → JD.OB 15:17 → JD.OBCHECK 15:57 → JD.OB 15:57 → OBSVTOIN 18:14 → JD.OB 18:15
PROVIDERS: ADMIT Obstetrics & Gynecology; ATTEND Obstetrics & Gynecology
PROC: 10E0XZZ Delivery of Products of Conception, External Approach (ICD-10-PCS; principal; 2017-09-02)
PROC: 10907ZC Drainage of Amniotic Fluid, Therapeutic from Products of Conception, Via Natural or Artificial Opening (ICD-10-PCS; 2017-09-02)
PROC: 00HU33Z Insertion of Infusion Device into Spinal Canal, Percutaneous Approach (ICD-10-PCS; 2017-09-02)
PROC: 3E0R3BZ Introduction of Anesthetic Agent into Spinal Canal, Percutaneous Approach (ICD-10-PCS; 2017-09-02)
PROC: 3E0234Z Introduction of Serum, Toxoid and Vaccine into Muscle, Percutaneous Approach (ICD-10-PCS; 2017-09-04)
PROC: 3E0234Z Introduction of Serum, Toxoid and Vaccine into Muscle, Percutaneous Approach (ICD-10-PCS; 2017-09-04)
DX: O70.0 First degree perineal laceration during delivery (principal); O69.81X0 Labor and delivery complicated by cord around neck, without compression, not applicable or unspecified; O99.334 Smoking (tobacco) complicating childbirth; Z37.0 Single live birth; Z3A.37 37 weeks gestation of pregnancy; F17.210 Nicotine dependence, cigarettes, uncomplicated; Z23 Encounter for immunization; F12.90 Cannabis use, unspecified, uncomplicated; F15.90 Other stimulant use, unspecified, uncomplicated
CPT/HCPCS: 01967; 36415; 59025; 59409; 80306; 81003; 85027; 86592; 86803; 87086; 87653; 90471; 90707; 90732; A9270-GY; G0009; G0433-QW; J2590; J3010; J7120

== ENCOUNTER 2019-11-08 15:02 | Emergency (ER) | payer MEDICAID ==
[2019-11-08 15:18] VITALS: BP 116/71; PULSE 100
--- NOTE | 2019-11-08 17:05 | EDM.PDOC ---
ED HPI GENERAL MEDICAL PROBLEM - General Chief Complaint: Lower Extremity Injury/Pain Stated Complaint: LT ANKLE INJURY Time Seen by Provider: 11/08/19 15:20 Source of Information: Reports: Patient, RN Notes Reviewed - History of Present Illness INITIAL COMMENTS - FREE TEXT/NARRATIVE: twisted L ankle a short time ago. Continued pain lateral L ankle with wt bearing. medial ankle, remainder of leg is good. Left Ankle Pain Score (Numeric/FACES): 6 - Related Data Allergies Allergy/AdvReac Type Severity Reaction Status Date / Time No Known Allergies Allergy Verified 11/08/19 15:16 Home Meds: Home Meds . [No Known Home Meds] 11/08/19 [History] Past Medical History - Past Health History Medical/Surgical History: Denies Medical/Surgical History HEENT History: Reports: Other (See Below) Other HEENT History: glass in eye one time, corneal abrasion Respiratory History: Reports: None Gastrointestinal History: Reports: GERD, Other (See Below) Other Gastrointestinal History: exploratory laproscopy Genitourinary History: Reports: UTI, Recurrent Other Genitourinary History: PCOS [employer] History: Reports: Polycystic Ovaries Other [employer] History: 2 children and 2 misscarriages; births have been vaginal deliveries Musculoskeletal History: Reports: Other (See Below) Other Musculoskeletal History: sciatic pain with - taking tylenol Psychiatric History: Reports: Anxiety Hematologic History: Reports: Anemia, Iron Deficiency - Infectious Disease History Infectious Disease History: Reports: None - Past Surgical History HEENT Surgical History: Reports: Oral Surgery Female Surgical History: Reports: D&C Other Female Surgeries/Procedures: Diagnostic laparoscopy for pelvic pain Musculoskeletal Surgical History: Reports: None - History Comment History Comment: tylenol prn Social & Family History - Family History Family Medical History: Noncontributory Other Dermatologic Family History: arthritis - Tobacco Use Smoking Status *Q: Current Every Day Smoker Years of Tobacco use: 7 Packs/Tins Daily: 0.5 - Caffeine Use Caffeine Use: Reports: None - Recreational Drug Use Recreational Drug Use: No - Sexual History Sexual History: Reports: Sexually Active - Living Situation & Occupation Living situation: Reports: Occupation: Unemployed Review of Systems - Review of Systems Review Of Systems: See Below Respiratory: Reports: No Symptoms GI/Abdominal: Reports: No Symptoms Musculoskeletal: Reports: Joint Pain Neurological: Reports: No Symptoms ED EXAM, GENERAL - Physical Exam Exam: See Below General Appearance: Alert, No Apparent Distress Head: Atraumatic Neck: Supple Respiratory/Chest: No Respiratory Distress Extremities: Other (she is tender lateral l ankle, no visible swelling or deformity, medial ankle nontender, jt stable) Neurological: Alert, Oriented, No Motor/Sensory Deficits Skin Exam: Warm, Dry, Intact Course - Vital Signs Last Recorded V/S: Last Vital Signs Temp 97 F 11/08/19 15:13 Pulse 100 11/08/19 15:13 Resp 16 11/08/19 15:13 BP 116/71 11/08/19 15:13 Pulse Ox 98 11/08/19 15:13 - Re-Assessments/Exams Free Text/Narrative Re-Assessment/Exam: 11/10/19 07:20 no fx Departure - Departure Time of Disposition: 17:04 Disposition: Home, Self-Care 01 Condition: Fair Clinical Impression: Ankle sprain Qualifiers: Encounter type: initial encounter Involved ligament of ankle: unspecified ligament Laterality: left Qualified Code(s): S93.402A - Sprain of unspecified ligament of left ankle, initial encounter - Discharge Information Instructions: Ankle Sprain, [id number] Referrals: PCP,None [Primary Care Provider] - Forms: ED Department Discharge, ED Return to Work/School Form Additional Instructions: cecilia wrap, rest ankle and foot. Ice packs and elevation as needed. tylenol as needed. Have rechecked clinic if not back to normal within 5 to 7 days as expected. Sepsis Event Note (ED) - Evaluation Sepsis Screening Result: No Definite Risk
--- NOTE | 2019-11-10 11:24 | CR ---
Left ankle: 4 views of the left ankle were obtained. Comparison: No prior ankle study is available. Ankle mortise is symmetric. No fracture, dislocation or other bony abnormality is appreciated. Impression: 1. No abnormality is appreciated on the left ankle exam. Diagnostic code #1 This report was dictated in MDT
== END 2019-11-08 17:19 | disposition home or self-care (01) ==
LOC: JD.ED 15:02
DX: S93.402A Sprain of unspecified ligament of left ankle, initial encounter (principal); F17.210 Nicotine dependence, cigarettes, uncomplicated; X50.1XXA Overexertion from prolonged static or awkward postures, initial encounter
CPT/HCPCS: 73610-26-LT; 73610-LT; 99282; 99283-25

== ENCOUNTER 2021-03-04 21:38 | Emergency (ER) | payer MEDICAID ==
[2021-03-04 21:50] VITALS: BP 124/79; PULSE 85
[2021-03-04] MEDS ORDERED: Sodium Chloride 0.9% 10 ML Syringe FLUSH PRN (22:02)
[2021-03-04] MEDS ORDERED: Ketorolac 30 MG/ML SDV IVPUSH ONE (22:03)
--- NOTE | 2021-03-04 22:19 | EDM.PDOC ---
ED HPI GENERAL MEDICAL PROBLEM - General Chief Complaint: Abdominal Pain Stated Complaint: ABDOMINAL PAIN Time Seen by Provider: 03/04/21 21:45 Source of Information: Reports: Patient History Limitations: Reports: No Limitations - History of Present Illness INITIAL COMMENTS - FREE TEXT/NARRATIVE: 30-year-old female presents the emergency department complaints of abdominal discomfort. She states that pain started approximately 2 days ago. Initially it started just above her umbilicus as a stabbing discomfort however she states that it progressed into generalized abdominal cramping that occurred intermittently. She also noted that her abdomen seemed bloated and distended. She thought that may be her issue with due to constipation so she did take laxatives yesterday. She states she has had several bowel movements and that has not resolved her abdominal discomfort. She states that she still has intermittent abdominal cramping however she states that primary area of discomfort is now in her bilateral flank area. Also complains of low back discomfort. She has been nauseated without vomiting and also notes that she has had a lack of appetite over the past 48 hours. She denies any fever however states she has had chills. She denies any body aches, cough, shortness of breath or sore throat. She does admit to urinary frequency however denies any burning or incontinence. She states she is otherwise healthy and does not take any prescription medications. She does admit to smoking half pack a day for the past 7 years. Treatments DISASSEMBLER PRODUCT: Reports: Acetaminophen Abdomen Pain Score (Numeric/FACES): 5 - Related Data Allergies Allergy/AdvReac Type Severity Reaction Status Date / Time No Known Allergies Allergy Verified 11/08/19 15:16 Home Meds: Home Meds . 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 TECHNICIAN History: Reports: Polycystic Ovaries Other PARKING TECHNICIAN History: 2 children and 2 misscarriages; births have been vaginal deliveries Musculoskeletal History: Reports: Other (See Below) Other Musculoskeletal History: sciatic pain with - taking tylenol Psychiatric History: Reports: Anxiety Hematologic History: Reports: Anemia, Iron Deficiency - Infectious Disease History Infectious Disease History: Reports: None - Past Surgical History HEENT Surgical History: Reports: Oral Surgery Other HEENT Surgeries/Procedures: wisdom teeth extraction GI Surgical History: Reports: None Female Surgical History: Reports: D&C Other Female Surgeries/Procedures: Diagnostic laparoscopy for pelvic pain Musculoskeletal Surgical History: Reports: None - History Comment History Comment: tylenol prn Social & Family History - Family History Family Medical History: No Pertinent Family History Other Dermatologic Family History: arthritis - Caffeine Use Caffeine Use: Reports: None - Living Situation & Occupation Living situation: Reports: Occupation: Unemployed ED ROS GENERAL - Review of Systems Review Of Systems: Comprehensive ROS is negative, except as noted in HPI. ED EXAM, GI/ABD - Physical Exam Exam: See Below Exam Limited By: No Limitations General Appearance: Alert, WD/WN, No Apparent Distress Ears: Normal External Exam, Hearing Grossly Normal Nose: Normal Inspection Throat/Mouth: Normal Inspection, Normal Lips, Normal Voice, No Airway Compromise Head: Atraumatic Neck: Normal Inspection, Supple Respiratory/Chest: No Respiratory Distress, Lungs Clear, Normal Breath Sounds, No Accessory Muscle Use, Chest Non-Tender Cardiovascular: Normal Peripheral Pulses, Regular Rate, Rhythm, No Edema, No Murmur GI/Abdominal Exam: Normal Bowel Sounds, Soft, No Distention, Tender (Tender in all 4 quadrants) (Female) Exam: Deferred Rectal (Female) Exam: Deferred Back Exam: Normal Inspection Extremities: Normal Inspection Neurological: Alert, Oriented, Normal Cognition Psychiatric: Normal Affect, Normal Mood Skin Exam: Warm, Dry, Intact, Normal Color, No Rash Lymphatic: No Adenopathy Course - Vital Signs Text/Narrative:: Stated above, patient presents with abdominal discomfort that started 2 days ago. Time of my exam, the patient does not appear to be in any distress. Her abdomen is soft however tender in all 4 quadrants with palpation. She tells me that when I palpate her abdomen it makes her feel like she needs to urinate. She does have a bowel sounds noted in all 4 quadrants. She does have costovertebral tenderness noted bilaterally. We will have nursing staff place a L[place] and we will draw lab studies to include a CBC, CMP and magnesium level. Will obtain a urinalysis with micro and culture if indicated. Nursing staff has swabbed the patient for Covid and influenza. Last Recorded V/S: Last Vital Signs Temp 97.8 F 03/04/21 21:49 Pulse 85 03/04/21 21:49 Resp 20 03/04/21 21:49 BP 124/79 03/04/21 21:49 Pulse Ox 100 03/04/21 21:49 - Orders/Labs/Meds Orders: Active Orders 24 hr Category Date Time Status Sodium Chloride 0.9% [Saline Flush] Med 03/04/21 22:02 Active 10 ml FLUSH ASDIRECTED PRN Saline Lock Insert [OM.PC] Stat Oth 03/04/21 22:02 Ordered Medication Orders Sodium Chloride (Sodium Chloride 0.9% 10 Ml Syringe) 10 ml FLUSH ASDIRECTED PRN PRN Reason: Keep Vein Open Last Admin: 03/04/21 22:14 Dose: 10 ml Documented by: ALEX Labs: Laboratory Tests 03/04/21 03/04/21 03/04/21 Range/Units 21:49 21:50 22:13 WBC 6.44 (3.98-10.04) K/mm3 RBC 3.78 L (3.98-5.22) M/mm3 Hgb 12.4 (11.2-15.7) gm/dl Hct 37.7 (34.1-44.9) % MCV 99.7 H (79.4-94.8) fl MCH 32.8 H (25.6-32.2) pg MCHC 32.9 (32.2-35.5) g/dl RDW Std Deviation 44.6 (36.4-46.3) fL Plt Count 289 (182-369) K/mm3 MPV 10.4 (9.4-12.3) fl Neut % (Auto) 54.7 (34.0-71.1) % Lymph % (Auto) 36.0 (19.3-51.7) % [place] % (Auto) 7.0 (4.7-12.5) % Eos % (Auto) 1.6 (0.7-5.8) Baso % (Auto) 0.5 (0.1-1.2) % Neut # (Auto) 3.53 (1.56-6.13) K/mm3 Lymph # (Auto) 2.32 (1.18-3.74) K/mm3 [place] # (Auto) 0.45 H (0.24-0.36) K/mm3 Eos # (Auto) 0.10 (0.04-0.36) K/mm3 Baso # (Auto) 0.03 (0.01-0.08) K/mm3 Sodium (136-145) mEq/L Potassium (3.5-5.1) mEq/L Chloride (98-107) mEq/L Carbon Dioxide (21-32) mEq/L Anion Gap (5-15) BUN (7-18) mg/dL Creatinine (0.55-1.02) mg/dL Est Cr Clr Drug Dosing mL/min Estimated GFR (MDRD) (>60) mL/min BUN/Creatinine Ratio (14-18) Glucose (70-99) mg/dL Calcium (8.5-10.1) mg/dL Magnesium (1.8-2.4) mg/dL Total Bilirubin (0.2-1.0) mg/dL AST (15-37) U/L ALT (14-59) U/L Alkaline Phosphatase (46-116) U/L Total Protein (6.4-8.2) g/dl Albumin (3.4-5.0) g/dl Globulin gm/dL Albumin/Globulin Ratio (1-2) Urine Color Light yellow (Yellow) Urine Appearance Clear (Clear) Urine pH 5.5 (5.0-8.0) Ur Specific [place] > or = 1.030 (1.005-1.030) Urine Protein Negative (Negative) Urine Glucose (UA) Negative (Negative) Urine Ketones Negative (Negative) Urine Occult Blood Negative (Negative) Urine Nitrite Negative (Negative) Urine Bilirubin Negative (Negative) Urine Urobilinogen 0.2 (0.2-1.0) Ur Leukocyte Esterase Negative (Negative) Influenza Type A RNA Negative (NEGATIVE) Influenza Type B RNA Negative (NEGATIVE) SARS-CoV-2 RNA ([place]) Positive H (NEGATIVE) 03/04/21 Range/Units 22:13 WBC (3.98-10.04) K/mm3 RBC (3.98-5.22) M/mm3 Hgb (11.2-15.7) gm/dl Hct (34.1-44.9) % MCV (79.4-94.8) fl MCH (25.6-32.2) pg MCHC (32.2-35.5) g/dl RDW Std Deviation (36.4-46.3) fL Plt Count (182-369) K/mm3 MPV (9.4-12.3) fl Neut % (Auto) (34.0-71.1) % Lymph % (Auto) (19.3-51.7) % [place] % (Auto) (4.7-12.5) % Eos % (Auto) (0.7-5.8) Baso % (Auto) (0.1-1.2) % Neut # (Auto) (1.56-6.13) K/mm3 Lymph # (Auto) (1.18-3.74) K/mm3 [place] # (Auto) (0.24-0.36) K/mm3 Eos # (Auto) (0.04-0.36) K/mm3 Baso # (Auto) (0.01-0.08) K/mm3 Sodium 139 (136-145) mEq/L Potassium 4.0 (3.5-5.1) mEq/L Chloride 102 (98-107) mEq/L Carbon Dioxide 28 (21-32) mEq/L Anion Gap 13.0 (5-15) BUN 18 (7-18) mg/dL Creatinine 0.9 (0.55-1.02) mg/dL Est Cr Clr Drug Dosing 76.98 mL/min Estimated GFR (MDRD) > 60 (>60) mL/min BUN/Creatinine Ratio 20.0 H (14-18) Glucose 90 (70-99) mg/dL Calcium 9.5 (8.5-10.1) mg/dL Magnesium 2.0 (1.8-2.4) mg/dL Total Bilirubin 0.4 (0.2-1.0) mg/dL AST 15 (15-37) U/L ALT 19 (14-59) U/L Alkaline Phosphatase 49 (46-116) U/L Total Protein 7.8 (6.4-8.2) g/dl Albumin 4.3 (3.4-5.0) g/dl Globulin 3.5 gm/dL Albumin/Globulin Ratio 1.2 (1-2) Urine Color (Yellow) Urine Appearance (Clear) Urine pH (5.0-8.0) Ur Specific [place] (1.005-1.030) Urine Protein (Negative) Urine Glucose (UA) (Negative) Urine Ketones (Negative) Urine Occult Blood (Negative) Urine Nitrite (Negative) Urine Bilirubin (Negative) Urine Urobilinogen (0.2-1.0) Ur Leukocyte Esterase (Negative) Influenza Type A RNA (NEGATIVE) Influenza Type B RNA (NEGATIVE) SARS-CoV-2 RNA ([place]) (NEGATIVE) Meds: Medications Generic Name Dose Route Start Last Admin Trade Name Freq PRN Reason Stop Dose Admin Sodium Chloride 10 ml 03/04/21 22:02 03/04/21 22:14 Sodium Chloride 0.9% 10 Ml Syringe FLUSH 10 ml ASDIRECTED PRN Administration Keep Vein Open Discontinued Medications Generic Name Dose Route Start Last Admin Trade Name Freq PRN Reason Stop Dose Admin Ketorolac Tromethamine 30 mg 03/04/21 22:03 03/04/21 22:14 Ketorolac 30 Mg/Ml Sdv IVPUSH 03/04/21 22:04 30 mg ONETIME ONE Administration - Re-Assessments/Exams Free Text/Narrative Re-Assessment/Exam: 03/04/21 22:51 Hematology is essentially unremarkable, chemistry is unremarkable Urinalysis is unremarkable Influenza a and B are negative however Covid test is positive Patient will be discharged home with recommendations that she isolate herself for another 8 days time. Patient does verbalize understanding. Departure - Departure Time of Disposition: 22:53 Disposition: Home, Self-Care 01 Condition: Good Clinical Impression: COVID-19 - Discharge Information Instructions: 10 Things You Can Do to Manage Your COVID-19 Symptoms at Home - CDC (09/17/2020), COVID-19: Quarantine vs. Isolation - [facility] [place] (02/19/2020) Referrals: Polly Blanco NP [Primary Care Provider] - Forms: ED Department Discharge, ED Return to Work/School Form Additional Instructions: You were seen in the emergency department this evening with complaints of abdominal pain, back pain, nausea and decreased appetite. Lab studies were completed and these were all essentially unremarkable. Urinalysis was unremarkable. Influenza a and B test were negative however Covid testing is positive. You will need to isolate for 8 days time for 10 days from the onset of your symptoms. Recommend that you get plenty of rest and drink plenty of fluids. May take Tylenol 650 mg every 4 hours as needed for discomfort or fever or ibuprofen 600 mg every 6-8 hours as needed for discomfort or fever. Should you develop increased shortness of breath or severity in your symptoms, recommend that you return to the emergency department as needed. Sepsis Event Note (ED) - Focused Exam Vital Signs: Vital Signs Temp Pulse Resp BP Pulse Ox 03/04/21 21:49 97.8 F 85 20 124/79 100 - My Orders Last 24 Hours: My Active Orders 03/04/21 22:02 Sodium Chloride 0.9% [Saline Flush] 10 ml FLUSH ASDIRECTED PRN Saline Lock Insert [OM.PC] Stat - Assessment/Plan Last 24 Hours: My Active Orders 03/04/21 22:02 Sodium Chloride 0.9% [Saline Flush] 10 ml FLUSH ASDIRECTED PRN Saline Lock Insert [OM.PC] Stat
[2021-03-04 22:45] LABS: CORONAVIRUS COVID-19 NAA POSITIVE (NEGATIVE)
== END 2021-03-04 23:35 | disposition home or self-care (01) ==
LOC: JD.ED 21:38
DX: U07.1 COVID-19 (principal)
CPT/HCPCS: 0240U; 36415; 80053; 81003; 83735; 85025; 96374; 99284; J1885

== ENCOUNTER 2024-04-16 08:44 | Emergency (ER) | payer BC, OTHER ==
[2024-04-16 09:03] VITALS: BP 156/105; PULSE 110
[2024-04-16] MEDS ORDERED: Naloxone 0.4 MG/ML SDV IVPUSH PRN (09:07)
[2024-04-16] MEDS: Lactated Ringers 1,000 ML IV ONE (09:15)
[2024-04-16 09:19] LABS: BASOPHILS ABSOLUTE AUTO 0.1 K/mm3 (0.0-0.2); BASOPHILS PERCENT AUTO 0.8 % (0.0-1.0); EOSINOPHILS ABSOLUTE AUTO 0.2 K/mm3 (0.0-0.4); EOSINOPHILS PERCENT AUTO 1.6 % (0.0-6.0); HEMATOCRIT 42.3 % (37.0-47.0); IMMATURE GRAN ABSOLUTE AUTO 0.03 K/mm3 (0.00-0.05); IMMATURE GRAN PERCENT AUTO 0.3 % (0.0-0.4); LYMPHOCYTES ABSOLUTE AUTO 3.2 K/mm3 (1.0-4.8); LYMPHOCYTES PERCENT AUTO 35.4 % (24.0-44.0); MEAN CORPUSCULAR HEMOGLOBIN 30.9 pg (28.0-32.0); MEAN CORPUSCULAR HGB CONC 33.1 g/dl (32.0-36.0); MEAN CORPUSCULAR VOLUME 93.4 fl (83.0-99.0); MEAN PLATELET VOLUME 10.1 fl (9.4-12.3); MONOCYTES ABSOLUTE AUTO 0.8 K/mm3 (0.0-0.8); MONOCYTES PERCENT AUTO 8.4 % (0.0-8.0); NEUTROPHILS ABSOLUTE AUTO 4.9 K/mm3 (1.8-7.7); NEUTROPHILS PERCENT AUTO 53.5 % (41.0-71.0); PLATELET COUNT,PLT 414 K/mm3 (150-400); RED BLOOD CELL COUNT 4.53 M/mm3 (4.10-5.30); WHITE BLOOD CELL COUNT,WBC 9.14 K/mm3 (3.9-11.3)
[2024-04-16 09:21] LABS: APPEARANCE,URINE CLEAR (Clear); BILIRUBIN,URINE NEGATIVE (Negative); COLOR,URINE YELLOW (Yellow); GLUCOSE,URINE NEGATIVE (Negative); KETONES,URINE NEGATIVE (Negative); LEUKOCYTE ESTERASE,URINE NEGATIVE (Negative); NITRITE,URINE NEGATIVE (Negative); OCCULT BLOOD,URINE NEGATIVE (Negative); PROTEIN,URINE NEGATIVE (Negative); UROBILINOGEN,URINE 0.2 (0.2-1.0)
[2024-04-16] MEDS: Acetaminophen 325 MG Tab PO ONE (09:23)
[2024-04-16] MEDS: HYDROmorphone 1 MG/ML Syringe IVPUSH ONE (09:27)
[2024-04-16 09:28] LABS: BACTERIA,URINE FEW /hpf (FEW); MUCUS,URINE FEW /hpf (FEW); RBC,URINE 0-5 /hpf (0-5); SQUAMOUS EPITHELIAL CELLS,UR 0-5 /hpf (0-5); WBC,URINE 0-5 /hpf (0-5)
[2024-04-16 09:33] LABS: BARBITURATE SCREEN,URINE NEGATIVE (CUTOFF=200); BENZODIAZEPINES SCREEN,URINE NEGATIVE (CUTOFF=150); BUPRENORPHINE SCREEN,URINE NEGATIVE (CUTOFF=10); METHADONE SCREEN, URINE NEGATIVE (CUTOFF=200); METHAMPHETAMINES SCREEN, URINE NEGATIVE (CUTOFF=500); OXYCODONE SCREEN,URINE PRESUMPTIVE POSITIVE (CUT0FF=100); THC SCREEN,URINE 20 NG/ML PRESUMPTIVE POSITIVE (CUTOFF=50)
[2024-04-16] MEDS: Ondansetron 4 MG/2 ML SDV IVPUSH ONE ×2 (09:33→10:14)
[2024-04-16 09:38] LABS: AMPHETAMINES SCREEN, URINE NEGATIVE (CUTOFF=500)
[2024-04-16 09:45] LABS: ALBUMIN 4.3 g/dl (3.4-5.0); ANION GAP 17.5 (5-15); BILIRUBIN TOTAL 0.5 mg/dL (0.2-1.0); CALCIUM 9.4 mg/dL (8.5-10.1); EST CRCL DRUG DOSING (CG) 67.43 mL/min; POTASSIUM,K 4.5 mEq/L (3.5-5.1); PROTEIN TOTAL,TP 8.7 g/dl (6.4-8.2)
== END 2024-04-16 10:30 | disposition home or self-care (01) ==
LOC: JD.ED 08:44
DX: K80.20 Calculus of gallbladder without cholecystitis without obstruction (principal); E03.9 Hypothyroidism, unspecified; E66.9 Obesity, unspecified; Z68.41 Body mass index [BMI] 40.0-44.9, adult; Z88.8 Allergy status to other drugs, medicaments and biological substances; Z79.890 Hormone replacement therapy; Z79.899 Other long term (current) drug therapy
CPT/HCPCS: 36415; 80053; 80306; 81001; 81025; 85025; 96374; 96375; 99284; A9270; J1171; J2405; J7120

== ENCOUNTER 2024-04-22 11:00 | Day surgery (SDC) | payer BC ==
[~2024-04-22 11:00] MED LIST: Dexamethasone 4 MG/ML 5 ML MDV ONE; Lactated Ringers 1,000 ML ONE; Ondansetron 4 MG/2 ML SDV ONE; Propofol 200 MG/20 ML SDV ONE; Rocuronium 50 MG/5 ML Vial ONE; Ropivacaine 0.5% 5 MG/ML 30 ML SDV ONE; Sodium Chloride 0.9% 10 ML Syringe FLUSH PRN; Sodium Chloride 0.9% 10 ML Syringe FLUSH SCH; dexmedeTOMIDine HCl 200 MCG/2 ML SDV ONE; fentaNYL 100 MCG/2 ML SDV ONE
[2024-04-22] MEDS ORDERED: Iopamidol 612 MG/ML 30 ML SDV ONE (11:03)
[2024-04-22] MEDS ORDERED: Propofol 200 MG/20 ML SDV ONE ×2 (11:05→11:24)
[2024-04-22] MEDS ORDERED: ceFAZolin 2 GM Vial ONE (11:07)
[2024-04-22] MEDS ORDERED: fentaNYL 100 MCG/2 ML SDV ONE ×2 (11:10→11:42)
[2024-04-22] MEDS: Lactated Ringers 1,000 ML IV SCH (11:26)
[2024-04-22] MEDS ORDERED: Sugammadex Sodium 200 MG/2 ML VIAL IV ONE (11:34)
[2024-04-22] MEDS ORDERED: Ketorolac 30 MG/ML SDV ONE (11:34)
[2024-04-22] MEDS ORDERED: Ondansetron 4 MG/2 ML SDV IVPUSH PRN (12:43)
[2024-04-22] MEDS: Bupivacaine 0.5% 30 ML SDV ONE (12:45)
[2024-04-22] MEDS: EPINEPHrine 1 MG/ML SDV ONE (12:45)
[2024-04-22] MEDS: HYDROmorphone 0.5 MG/0.5 ML Syringe IVPUSH PRN (13:13)
[2024-04-22] MEDS: fentaNYL 100 MCG/2 ML SDV IVPUSH PRN (13:24)
[2024-04-22] MEDS: Acetaminophen Soln 650 MG/20.3 ML UD Cup PO ONE (13:52)
[2024-04-22] MEDS: oxyCODONE 5 MG Tab PO PRN (14:55)
[2024-04-22 15:09] VITALS: BP 141/93; PULSE 59
== END 2024-04-22 15:01 | disposition home or self-care (01) ==
LOC: JD.SDS 11:00
PROVIDERS: ATTEND Surgery
DX: D13.5 Benign neoplasm of extrahepatic bile ducts (principal); K80.10 Calculus of gallbladder with chronic cholecystitis without obstruction; K21.9 Gastro-esophageal reflux disease without esophagitis; E03.9 Hypothyroidism, unspecified; Z79.899 Other long term (current) drug therapy
CPT/HCPCS: 47562; 64488; A9270; J0171; J0665; J0690; J1100; J1885; J2405; J2704; J2795; J3010; J7120; 00790; J3490; Q9967

== ENCOUNTER 2024-06-24 12:40 | Emergency (ER) | payer BC | END 2024-06-24 13:01 | disposition left against medical advice (07) | LOC: JD.ED 12:40 | DX: Z53.21 Procedure and treatment not carried out due to patient leaving prior to being seen by health care provider (principal) ==